=== PATIENT | female | born 1940 | race Caucasian/White ===

== ENCOUNTER → 2017-10-18 10:36 | Outpatient (CLI) | payer MEDICARE, OTHER, SELFPAY ==
--- NOTE | 2017-10-18 10:42 | BI_ITS ---
MAMMOGRAPHY - BILATERAL SCREENING REASON FOR EXAM: Female, 77 years old. Routine annual screening examination. PERTINENT HISTORY: Non-contributory. TECHNIQUE: Digital bilateral breast vinny (3D mammographic acquisition) in the CC and MLO projections. 2-D mediolateral oblique (MLO) and craniocaudad (CC) views of both breasts were obtained. CAD: Full Field Digital Mammography with Computer Added Detection was performed. COMPARISON: Comparison is made with prior study dated October 10, 2016 and September 29, 2015. FINDINGS: Breast Composition: There are scattered areas of fibroglandular density. There are no dominant masses or suspicious calcifications. Stable 3.8 mm well-defined nodule in the upper axillary region of the right breast. Stable appearance of the vascular calcifications bilaterally. No other significant abnormalities are identified. There has been no significant change since the prior study. BI/SCREENING MAMM (CAD), BILAT IMPRESSION: Stable bilateral screening mammogram. Yearly follow-up mammogram recommended. (A) ASSESSMENT CATEGORY: BIRADS Category 2: Benign. A letter regarding these results will be sent to the patient by the facility within 30 days. Approximately 10% of breast cancers are not detected by mammography. A normal mammogram should not delay biopsy of a clinically suspicious abnormality. [id number] Electronically Signed: Marlon Marmolejo MD at 12:41 EDT Tel [phone], Service support ,
== END ==
PROVIDERS: Family Provider Family Medicine; PCP Family Medicine; Visit Provider Family Medicine
DX: Z12.31 Encounter for screening mammogram for malignant neoplasm of breast (principal)
CPT/HCPCS: 77063; 77067

== ENCOUNTER 2018-07-22 06:30 | Day surgery (SDC) | payer MEDICARE, OTHER, SELFPAY ==
[2018-07-10 09:33] VITALS: BMI 28.4
--- NOTE | 2018-07-21 | COLBX_PTH ---
PATIENT: CORINNE HANKS LOC: EN U#:[id number] AGE/SX: 78/F ROOM: RE07/22/[address]: Dr. Austin Segura MD : 1940 BED: DIS: 07/22/2018 SPEC #: [id number] RECD: 07/22/18 14:08 STATUS: VINOD VERÓNICA #: [id number] RAUL: 07/21/18 00:[address]: Austin Segura DEPT: SURGICAL PATHOLOGY RECD BY: Ralph Stevens ENTERED: 07/22/18 14:09 SP TYPE: COLON BX OTHR DR: Dr. Sudheer Segura III, MD Tissues: COLON BIOPSY Procedures: Trichrome (control) Special Stain Group II Surgery Specimen Level IV HEADER OPERATION: Colonoscopy (MOD) PRE-OP DIAGNOSIS: Screening TISSUE SUBMITTED: Random colon biopsies MICROSCOPIC DIAGNOSIS Colon, random biopsy: Fragments of colonic mucosa with changes consistent with lymphocytic (microscopic) colitis and focal changes suggestive of collagenous colitis. See comment. VANDA:steph 07/23/18 COMMENT Trichrome stain with matched control was used in the evaluation of the specimen and shows focal minimal thickening of subepithelial collagen band. MICROSCOPIC DESCRIPTION Slides are reviewed. GROSS DESCRIPTION Received in fixative is one container labeled with the patient's name and designated random colon biopsy. The specimen consists of multiple irregular fragments of light danielle soft tissue that in aggregate measure 1.5 x 1 x 0.1 cm. The specimen is totally submitted in one cassette. / VANDA:steph 07/22/18 TC:5 CPT: 54238, 31842
[2018-07-22] VITALS (7 sets, daily range): BP systolic 98–160; BP diastolic 57–84; PULSE 60–67; RESP 16–18; TEMP 36.3–36.6; O2SAT 93–100; BMI 27.7
--- NOTE | 2018-07-22 08:01 | OP.ENDO_ITS ---
07/22/2018 Sudheer Segura [address] [place] [address] Re : Colonoscopy procedure for Cecelia Jofrancisco javier Dear Dr. Segura This procedure was performed on Sunday, July 22, 2018. My impressions and recommendations are as follows: Impressions : - Non-thrombosed external hemorrhoids, non-thrombosed internal hemorrhoids and internal hemorrhoids that prolapse with straining, but spontaneously regress to the resting position (Grade II) found on digital rectal exam. - Tortuous colon. - Increased mucosa vascular pattern in the ascending colon and in the cecum. Biopsied. - The examination was otherwise normal. Recommendations : - Discharge patient to home. - Resume previous diet. - Continue present medications. - Telephone my office for pathology results in 1 week. - Repeat colonoscopy in 5 years for surveillance. My findings are described in the full procedure note, which is enclosed. If I can be of further assistance, please feel free to contact me at Doctor phone number(s): Work: . Sincerely, Austin Segura MD 07/22/2018 8:01:29 AM This report has been signed electronically.
== END 2018-07-22 09:23 | disposition home or self-care (01) ==
LOC: EN 06:30 → AC 06:31
PROVIDERS: Family Provider Family Medicine; PCP Family Medicine; Referring Provider Family Medicine; Visit Provider Surgery
PROC: 0DJD8ZZ Inspection of Lower Intestinal Tract, Via Natural or Artificial Opening Endoscopic (ICD-10-PCS; CPT 45378; principal; 2018-07-22 07:25)
DX: K64.4 Residual hemorrhoidal skin tags (principal); K64.1 Second degree hemorrhoids; Z80.0 Family history of malignant neoplasm of digestive organs; Q43.8 Other specified congenital malformations of intestine; K21.9 Gastro-esophageal reflux disease without esophagitis; Z79.899 Other long term (current) drug therapy; Z87.891 Personal history of nicotine dependence
CPT/HCPCS: 45380; 88305; 88313; 99152; 99153; J7120

== ENCOUNTER → 2018-10-22 14:34 | Outpatient (CLI) | payer MEDICARE, OTHER, SELFPAY ==
[2018-07-22 06:48] VITALS: BMI 27.7
--- NOTE | 2018-10-22 14:37 | BI_ITS ---
MAMMOGRAPHY - BILATERAL SCREENING REASON FOR EXAM: Female, 78 years old. Routine annual screening examination. PERTINENT HISTORY: Non-contributory. TECHNIQUE: Digital bilateral breast martin (3D mammographic acquisition) in the CC and MLO projections. 2-D mediolateral oblique (MLO) and craniocaudad (CC) views of both breasts were obtained. CAD: Full Field Digital Mammography with Computer Added Detection was performed. COMPARISON: Comparison is made with prior examination dated October 18, 2017 and October 10, 2016. FINDINGS: Breast Composition: There are scattered areas of fibroglandular density. There are no dominant masses or suspicious calcifications. Stable 3.8 mm well-defined nodule in the upper axillary region of the right breast. This most likely represents a small lymph node. Stable small benign-appearing bilateral axillary lymph nodes. No other significant abnormalities are identified. There has been no significant change since the prior study. BI/SCREEN MAMM (CAD) W/MARTIN BILAT IMPRESSION: Stable bilateral screening mammogram. Yearly follow-up mammogram recommended. (A) ASSESSMENT CATEGORY: BIRADS Category 2: Benign. A letter regarding these results will be sent to the patient by the facility within 30 days. Approximately 10% of breast cancers are not detected by mammography. A normal mammogram should not delay biopsy of a clinically suspicious abnormality. [id number] Electronically Signed: Marlon Marmolejo, at 15:44 EDT , Service support ,
== END ==
PROVIDERS: Family Provider Family Medicine; PCP Family Medicine; Referring Provider Family Medicine; Visit Provider Family Medicine
DX: Z12.31 Encounter for screening mammogram for malignant neoplasm of breast (principal)
CPT/HCPCS: 77063; 77067

== ENCOUNTER → 2019-06-02 15:57 | Outpatient (CLI) | payer MEDICARE, OTHER, SELFPAY ==
[2018-07-22 06:48] VITALS: BMI 27.7
== END ==
PROVIDERS: PCP Family Medicine; Referring Provider Urology; Visit Provider Urology
DX: R35.0 Frequency of micturition (principal)
CPT/HCPCS: 87086

== ENCOUNTER → 2019-11-10 08:17 | Outpatient (CLI) | payer MEDICARE, OTHER, SELFPAY ==
[2018-07-22 06:48] VITALS: BMI 27.7
--- NOTE | 2019-11-10 08:21 | BI_ITS ---
MAMMOGRAPHY - BILATERAL SCREENING REASON FOR EXAM: Female, 79 years old. Routine annual screening examination. PERTINENT HISTORY: Sister with breast cancer. TECHNIQUE: Digital bilateral breast martin (3D mammographic acquisition) in the CC and MLO projections. 2-D mediolateral oblique (MLO) and craniocaudad (CC) views of both breasts were obtained. CAD: Full Field Digital Mammography with Computer Added Detection was performed. COMPARISON: Comparison is made with prior examination dated 10/22/2018 and 10/18/2017. FINDINGS: Breast Composition: There are scattered areas of fibroglandular density. There are no dominant masses or suspicious calcifications. Stable benign-appearing bilateral axillary lymph nodes. No other significant abnormalities are identified. There has been no significant change since the prior study. BI/SCREEN MAMM (CAD) W/MARTIN BILAT IMPRESSION: Stable bilateral screening mammogram. Yearly follow-up mammogram recommended. (A) ASSESSMENT CATEGORY: BIRADS Category 2: Benign. A letter regarding these results will be sent to the patient by the facility within 30 days. Approximately 10% of breast cancers are not detected by mammography. A normal mammogram should not delay biopsy of a clinically suspicious abnormality. [id number] Electronically Signed: Marlon Marmolejo, at 10:18 EDT , Service support ,
== END ==
PROVIDERS: PCP Family Medicine; Referring Provider Family Medicine; Visit Provider Family Medicine
DX: Z12.31 Encounter for screening mammogram for malignant neoplasm of breast (principal)
CPT/HCPCS: 77063; 77067

== ENCOUNTER 2020-05-05 10:42 | Outpatient (RCR) | payer MEDICARE, OTHER, SELFPAY ==
[2018-07-22 06:48] VITALS: BMI 27.7
== END 2020-05-05 23:59 ==
LOC: IMMUN 10:42
PROVIDERS: PCP Family Medicine; Visit Provider Family Medicine
DX: Z23 Encounter for immunization (principal)
CPT/HCPCS: 0011A; 0012A; 91301

== ENCOUNTER → 2020-10-31 09:29 | Outpatient (CLI) | payer MEDICARE, OTHER, SELFPAY ==
[2018-07-22 06:48] VITALS: BMI 27.7
--- NOTE | 2020-10-31 09:32 | RAD_ITS ---
PROCEDURE: Fluoroscopic guided shoulder Injection DATE: 10/31/2020. INDICATION: Female, 80 years old. Chronic left shoulder pain. PHYSICIAN: Marlon Marmolejo M.D. MEDICATIONS: 12 mg of BETAMETHASONE and 4 cc of 1% LIDOCAINE. 2% lidocaine administered subcutaneously for local anesthesia. ACCESS SITE: Left shoulder. NEEDLE: 22-gauge spinal needle. FLUOROSCOPY TIME (if supplied): (0:54) minutes/seconds. One image was obtained. FINDINGS: The risks, benefits, and alternatives to the procedure were explained to the patient. The specific risks of bleeding, infection, and neurovascular injury were detailed and accepted. Witnessed informed consent was obtained. A 22-gauge spinal needle was positioned under radiographic fluoroscopic localization. Approximately 2 cc of ISOVUE-300 instilled for localization purposes. Medication was then injected. The patient tolerated the procedure well without any immediate complications. RAD/Inj/Asp Kirt Jt Should/Hip/Knee IMPRESSION: 1. Successful fluoroscopic guided left shoulder injection. Electronically Signed: Marlon Marmolejo MD at 11:29 EDT , Service support ,
[2020-10-31] MEDS: Lidocaine 2% (5ml sdv) 5 ML VIAL.MPF INFILT (10:00)
== END ==
PROVIDERS: PCP Family Medicine; Referring Provider Specialist; Visit Provider Specialist
DX: M19.012 Primary osteoarthritis, left shoulder (principal)
CPT/HCPCS: 20610; 77002; Q9967; J0702

== ENCOUNTER → 2020-12-02 11:21 | Outpatient (CLI) | payer MEDICARE, OTHER, SELFPAY ==
[2020-12-02 12:31] LABS: Absolute Lymphocyte Count 15.69 X10^3/uL (0.83-4.51); Basophil# 0.05 X10^3/uL; Basophil% 0.2 % (0-1); Eosinophil# 0.23 X10^3/uL; Eosinophils% 1.1 % (0-5); Hematocrit 43.6 % (37-47); Hemoglobin 13.9 g/dL (12.0-15.0); Lymphocyte # 15.69 X10^3/ul (0.83-4.51); Lymphocyte % 72.8 % (19-41); Mean Corp Hgb Conc 31.9 g/dL (32-36); Mean Corpuscular Hgb 30.6 pg (27.0-32.0); Mean Platelet Vol. 11.3 fl (6.2-12.0); Monocyte# 0.56 X10^3/uL; Monocyte% 2.6 % (0-10); NRBC Flagged by Analyzer 0.1 % (0-5); Neutrophil # 4.96 X10^3/uL (2.7-7.7); Neutrophil % 23.1 % (47-70); POSITIVE DIFFERENTIAL YES; POSITIVE MORPHOLOGY YES; Platelet Count 280 K/mm3 (150-450); RBC Distribution Width CV 13.7 % (11.6-14.6); RBC Distribution Width SD 48.8 fl (35.1-43.9); Red Blood Count 4.54 M/mm3 (4.2-5.4); White Blood Count 21.5 K/mm3 (4.4-11.0)
[2020-12-02 12:33] LABS: Differential Indicated SCAN CRITERIA MET
[2020-12-02 12:45] LABS: ALB/GLOB Ratio 1.1 RATIO (0.9-2.4); AST(SGOT) 25 U/L (15-37); Alanine Aminotransfer ALT/SGPT 22 U/L (13-56); Albumin, Serum 3.8 g/dL (3.2-5.0); Alkaline Phosphatase 69 U/L (45-117); Anion Gap 5 (5-15); BUN 19 mg/dL (7-18); BUN/Creat Ratio 24.5 RATIO (10-20); Calcium,Total 9.3 mg/dL (8.5-10.1); Chloride 106 mmol/L (98-107); Cholesterol 206 mg/dL (200); Creatinine, Serum 0.78 mg/dL (0.55-1.02); EST Glomerular Filtration Rate 76 mL/min (>60); Est Glom Filt Rate - Afr Amer 92 mL/min (>60); Globulin 3.4 g/dL (2.2-4.2); Glucose 82 mg/dL (74-106); High Density Lipoprotein 88 mg/dL; Potassium 4.5 mmol/L (3.5-5.1); Protein, Total 7.2 g/dL (6.4-8.2); Sodium Level 141 mmol/L (136-145); Triglycerides 101 mg/dL; Very Low Density Lipoprotein 20 mg/dL (5-40)
[2020-12-02 13:21] LABS: Smudge Cells 1+
[2020-12-05 13:55] LABS: Pathologist Review Reviewed
== END ==
PROVIDERS: PCP Family Medicine; Referring Provider Family Medicine; Visit Provider Family Medicine
DX: E78.5 Hyperlipidemia, unspecified (principal); C91.10 Chronic lymphocytic leukemia of B-cell type not having achieved remission; K58.0 Irritable bowel syndrome with diarrhea; N32.81 Overactive bladder
CPT/HCPCS: 36415; 80053; 80061; 85025

== ENCOUNTER → 2020-12-16 13:18 | Outpatient (CLI) | payer MEDICARE, OTHER, SELFPAY ==
--- NOTE | 2020-12-16 13:42 | BI_ITS ---
MAMMOGRAPHY - BILATERAL SCREENING REASON FOR EXAM: Female, 80 years old. Routine annual screening examination. PERTINENT HISTORY: Sister with breast cancer. TECHNIQUE: Digital bilateral breast martin (3D mammographic acquisition) in the CC and MLO projections. 2-D mediolateral oblique (MLO) and craniocaudad (CC) views of both breasts were obtained. CAD: Full Field Digital Mammography with Computer Added Detection was performed. COMPARISON: Comparison is made with prior study 11/10/2019 and 10/22/2018. FINDINGS: Breast Composition: There are scattered areas of fibroglandular density. There are no dominant masses or suspicious calcifications. Stable small benign appearing bilateral axillary lymph nodes. No other significant abnormalities are identified. There has been no significant change since the prior study. BI/SCRN MAMM (CAD)W/MARTIN BILAT IMPRESSION: Stable bilateral screening mammogram. Yearly follow-up mammogram recommended. (A) ASSESSMENT CATEGORY: BIRADS Category 2: Benign. A letter regarding these results will be sent to the patient by the facility within 30 days. Approximately 10% of breast cancers are not detected by mammography. A normal mammogram should not delay biopsy of a clinically suspicious abnormality. [id number] Electronically Signed: Marlon Marmolejo MD at 14:33 EDT , Service support ,
== END ==
PROVIDERS: PCP Family Medicine; Visit Provider Family Medicine
DX: Z12.31 Encounter for screening mammogram for malignant neoplasm of breast (principal)
CPT/HCPCS: 77063; 77067

== ENCOUNTER → 2020-12-28 10:37 | Outpatient (CLI) | payer MEDICARE, OTHER, SELFPAY ==
--- NOTE | 2020-12-28 10:54 | BD_ITS ---
STUDY: DUAL ENERGY X-RAY ABSORPTIOMETRY / DXA REASON FOR EXAM: Female, 80 years old. M85.89. The patient is postmenopausal. TECHNIQUE: Bone Mineral Density (BMD) measurements of lumbar spine and bilateral hips were obtained. COMPARISON: None. FINDINGS: Lumbar Spine (L1-L4): g/cm2 (0.885) / T-score (-1.5) / Z-score (1.2) Findings are suggestive of osteopenia with a low fracture risk. Left Femur Total: g/cm2 (0.964) / T-score (0.2) / Z-score (2.3) Left Femoral Neck: g/cm2 (0.753) / T-score (-0.9) / Z-score (1.5) Right Femur Total: g/cm2 (0.914) / T-score (-0.2) / Z-score (1.9) Right Femoral Neck: g/cm2 (0.737) / T-score (-1.0) / Z-score (1.3) BD/Dexa Bone Density Study IMPRESSION: The patient is considered osteopenic as outlined below according to World Sreedhar Organization (WHO) criteria with a low fracture risk. Reference Information: The T-score is the number of standard deviations above or below the standard which is normal for young adults at their peak bone mineral density. The World Health Organization (WHO) interprets the T-scores as follows: Above -1 Normal bone density Between -1 and -2.5 Osteopenia Equal to / or below -2.5 Osteoporosis As a practical clinical guideline, osteopenia may be graded as follows: Mild -1 through -1.5 Moderate -1.6 through -2.0 Severe -2.1 through -2.4 The Z-score is the number of standard deviations above or below age-matched controls. A Z-score of less than -1.5 would be considered abnormal. References: 1. NIH Osteoporosis and Related Bone Diseases www osteo.org 2. International Society for Clinical Densitometry www iscd.org 3. National Osteoporosis Foundation www nof.org Electronically Signed: Marlon Marmolejo MD at 15:32 EDT , Service support ,
== END ==
PROVIDERS: PCP Family Medicine; Referring Provider Family Medicine; Visit Provider Family Medicine
DX: M85.89 Other specified disorders of bone density and structure, multiple sites (principal)
CPT/HCPCS: 77080

== ENCOUNTER → 2021-01-09 14:46 | Outpatient (CLI) | payer MEDICARE, OTHER, SELFPAY ==
--- NOTE | 2021-01-09 14:49 | CT_ITS ---
STUDY: CT LEFT SHOULDER REASON FOR EXAM: Female, 80 years old. PRIMARY OSTEOARTHRITIS RADIATION DOSAGE (If Supplied By Facility): CTDIvol = ( 26.22 ) mGy, DLP = ( 530.78 ) mGycm TECHNIQUE: The patient was scanned in a multi detector CT scanner. High resolution transaxial imaging was performed without the administration of intravenous contrast material. Sagittal and coronal images were reconstructed. Individualized dose optimization techniques were used for this CT. COMPARISON: None. FINDINGS: Unremarkable glenohumeral articulation with no evidence of dislocation. Osteophytosis visualized in the glenoid bone most prominent in the anterior and inferior borders Osteophytosis visualized within the humeral head most prominent along the anterior and inferior articular margins. Degenerative changes and suggestion of subtle enthesopathy in the bicipital groove. Severe narrowing of the acromioclavicular joint with subtle subchondral lucencies consistent with subchondral cystic changes, air visualized within the joint space and mild overlying soft tissue prominence seen superiorly. 0.5 cm calcification suggestive of a loose body visualized within the subcoracoid space. Multiple subtle scattered popcorn calcifications visualized within the posterior inferior aspect of the shoulder joint is visualized on coronal CT is series 601 image 56 and axial series 3 image 33 with surrounding soft tissue prominence, findings could represent synovial chondromatosis. No evidence of cortical irregularities or lucencies to suggest fractures, no evidence of lytic or sclerotic bone lesions is seen. CT/Extremity Upper without Contra IMPRESSION: Extensive degenerative changes, no acute osseous abnormality is seen. Electronically Signed: Tyler Collazo MD at 11:27 EDT Tel , Service support ,
== END ==
PROVIDERS: PCP Family Medicine; Referring Provider Specialist; Visit Provider Specialist
DX: M19.012 Primary osteoarthritis, left shoulder (principal)
CPT/HCPCS: 73200

== ENCOUNTER 2021-03-15 06:13 | Day surgery (SDC) | payer MEDICARE, OTHER, SELFPAY ==
--- NOTE | 2021-02-21 17:17 | PCM.HP.BLA ---
History and Physical History and Physical [facility] Patient Name: Cecelia Knight : 1940 From: DB PALMER PA-C DATE OF SURGERY: 03/15/2021 SCHEDULED PROCEDURE: left reverse total shoulder arthroplasty HISTORY OF PRESENT ILLNESS: Preoperative history and physical exam was performed on February 20, 2021. This is an 81-year-old female who is been having ongoing left shoulder pain for several months. Patient is right-hand dominant. Patient's pain has been sharp, shooting pain. Her pain with activities can reach as high as a 10/10. She has had difficulties with activities of daily living including getting dressed. She has had previous intra-articular injection which was helpful temporarily but the pain returned. She has tried previous physical therapy with minimal improvement. She does feel her left shoulder has decreased motion when compared to the right shoulder. Patient has been using [id number] extra strength Tylenol. Patient states she has medical history pertinent for chronic diarrhea, irritable bowel syndrome, overactive bladder, hypercholesterolemia, and previous history of chronic lymphocytic leukemia. Patient currently denies any chest pain, shortness of breath, fevers chills or recent infections. She states she has seen a kettle firer in the past in 2010 for what she describes as irregular heartbeat. She was never followed after the one cardiology appointment. She does see Dr. Jara for the chronic lymphocytic leukemia. She is currently not requiring any treatments. They're following that with lab work. She does see a urologist for her overactive bladder. She denies previous blood clots in the past. After failing conservative measures and discussing treatment options with Dr. Bryan Castle, the patient does wish to proceed with a left reverse total shoulder arthroplasty. We are obtaining surgical clearance from the primary care physician Dr. Sharif. REVIEW OF SYSTEMS: ROS: Const: Denies anorexia, anxiety, change in appetite, fever and weight change,hard of hearing, and vision problems. ENMT: Reports hearing loss. Reports 25% loss in each ear. CV: Reports irregular heartbeat, but denies chest pain, heart murmur and peripheral vascular disease. Resp: Reports pneumonia, but denies asthma, cough, sleep apnea, shortness of breath, tuberculosis and wheezing. GI: Reports diarrhea Denies constipation, heartburn, nausea, bloody stools and vomiting, and difficulty swallowing. : Denies incontinence. Musculo: Reports trouble walking and weakness of the legs, but denies leg swelling, limp. Skin: Denies Raynaud's, history of shingles and tattoo. Neuro: Denies ambulatory dysfunction, dizziness, numbness/tingling and tremor. Psych: Reports insomnia, but denies anxiety, depression, mental illness and stress. Tarik/Lymph: Denies anemia, bleeding/bruising tendency and past transfusion. Reviewed, no changes. PAST MEDICAL HISTORY: Advance Care Plan: No Advance Directives Effective Date: 04/29/2015 PMH: Medical Problems: Arthritis Cancer - Chronic Lympkocytic Leukemia Hypercholesterolemia, IBS, Chronic Diarrhea, Overactive Bladder Accidents: Fracture - 1965 Pelvis Surgical Hx: Appendectomy - 1974 [facility] Gallbladder - 2002 [place] Hysterectomy - 1995 with Bladder Suspension [place] Tonsillectomy - 1944 [place] Tubal Ligation - 1974 [facility] Section - 1974 [facility] Vein Stripping - 1996 [place] Carpal Tunnel - 1996 [place] [place] Small bowel obstruction - (2009) Lysis of adhesions [facility] Dr Saida Segura LT Knee Uni - (05/31/2015) ALENA @ [facility] Anesthesia Complications: None Assistive Devices: Glasses, Hearing Aid Reviewed and updated. SOCIAL HISTORY: SH: Marital: .Occupation: Retired.Work Status: Retired.Hand Dominance: Right-handed. Personal Habits: Cigarette Use: Former.Smokeless Tobacco: Never Used Smokeless Tobacco.E-Cigarette Use: Never used.Alcohol: Occasionally.Drug Use: Denies Use.Enjoy Exercising: Exercises 1-3 X/Week. Reviewed, no changes. VITALS: Ht: 57 Wt: 129lb Wt k.514 BMI: 27.9 BP: 136/70 Pulse: 61 Resp: 16 T: 97.8 T: 36.6C Pain Level: 3 ALLERGIES: Codeine - Nausea And Vomiting MEDICATIONS: Zofran 4 mg 1-2 by mouth every 8 as needed nausea, Ultram 50 mg 1-2 by mouth q6 hour as needed pain, Vitamin D3 1000 Unit 1 tab PO daily, Simvastatin 40 mg 1 by mouth every day, Vitamin B12 1000 mcg 1 by mouth every day, [place] 3 Krill Oil 1po qday, Vision Multi 50+ 1po qday, Aspir-81 81 mg 1 by mouth every day, Biotin 05742 mcg 1po qday, Prevagen Extra Strength 20 mg 1po bid, Oxybutynin Chloride ER 10 mg 1 by mouth every day, Ubiquinol 100 mg 1po daily, Doxylamine Succinate 1po prn, Loperamide HCL 2 mg 1-2po prn, Omeprazole 20 mg 1 by mouth every day PRE-OP EXAM: General appearance:NORMAL Other: Eyes: Conjunctivae and lids: NORMAL Pupils: ERR Ears, Nose, Mouth, and Throat: NORMAL Other: Inspection of lips, teeth and gums: NORMAL Other: Neck: Examination of neck: no masses noted. Respiratory: Assessment of respiratory effort: NORMAL Other: Auscultation of lungs: clear to auscultation no wheezes, rhonchi or rales. Cardiovascular: Auscultation of heart: regular rate and rhythm, no murmurs, gallops or rubs. PHYSICAL EXAMINATION: Left shoulder is cool to touch without erythema or signs of infection. She has tenderness to palpation of the left lateral shoulder and anterior shoulder. Range of motion: Forward elevation 160 on the right and 150 on the left, external rotation 35 on the right and 15 on the left, internal rotation T9 bilaterally. She does have some mild scapular dyskinesia. 4/5 supraspinatus strength on the left and 5/5 on the right. 5/5 internal and external rotation bilaterally. Sensation intact to light touch to axillary, radial, median, ulnar nerve distribution. IMAGING STUDIES: Previous x-rays of left shoulder reveal osseous loose body in the axillary pouch. There is significant osteophytic formation around the humeral head at the margins of the articular surface. There is complete loss of joint space in the glenohumeral joint with posterior wear on the axillary view consistent with primary glenohumeral osteoarthritis. IMPRESSION: 1. Severe left shoulder glenohumeral osteoarthritis 2. Chronic lymphocytic leukemia 3. Hypercholesterolemia 4. Irritable bowel syndrome 5. Chronic diarrhea 6. Overactive bladder PLAN: Dr. Bryan Castle did discuss and review with the patient all treatment options including surgical versus nonsurgical options. Patient does wish to proceed with the above-stated procedure. Potential risks, benefits, and complications of the procedure were discussed in detail including but not limited to , infection, nerve and blood vessel damage, persistent pain, numbness, tingling, paresthesias, blood clot, pulmonary embolism, and requirement for possible further surgery. The patient expressed full understanding and has no further questions for the doctor. Patient does agree to proceed with the above-stated procedure and has signed the surgery consent form. We discussed the current risks associated with COVID 19. This does include the risk of exposure while in the hospital. Patient was reassured local hospitals have low infection rates and are taking all necessary precautions to avoid exposure to patients. In addition, we discussed strategies that can be used to help limit exposure including those that limit the patient's time in the hospital. Also using strategies to limit the patient's need for continued inpatient services after being discharged from the hospital. Patient was notified that we will need to comply with any screening or testing the hospital wishes to perform or that surgery may be delayed for any positive results. This dictation was created using voice recognition software. Phonetic and/or grammatical errors may exist. ___ I have re-examined the patient. There are no clinical changes since date of exam. ___ See progress notes for changes. ___ Dictated on admission Date: Time: Signature:
--- NOTE | 2021-03-08 09:46 | EKG12_ITS ---
Test Reason : PRE-OP Blood Pressure : / mmHG Vent. Rate : 060 BPM Atrial Rate : 060 BPM P-R Int : 154 ms QRS Dur : 078 ms QT Int : 420 ms P-R-T Axes : 041 033 033 degrees QTc Int : 420 ms Normal sinus rhythm Normal ECG Confirmed by TAMARA NORTON, LEN ([id number]), story editor MAYKEL ALMENDAREZ ([id number]) on 03/09/2021 8:27:08 AM Referred By: Bryan Castle Confirmed By:LEN MCDONALD MD
[2021-03-08 10:26] LABS: Absolute Lymphocyte Count 14.58 X10^3/uL (0.83-4.51); Absolute Neutrophil Count 3.9 X10^3/uL (2.0-7.7); Basophil# 0.05 X10^3/uL; Basophil% 0.3 % (0-1); Eosinophil# 0.26 X10^3/uL; Eosinophils% 1.3 % (0-5); Hemoglobin 13.7 g/dL (12.0-15.0); Lymphocyte # 14.58 X10^3/ul (0.83-4.51); Lymphocyte % 75.3 % (19-41); Mean Corp Hgb Conc 31.9 g/dL (32-36); Mean Corpuscular Hgb 30.2 pg (27.0-32.0); Mean Corpuscular Volume 94.9 fL (81-99); Mean Platelet Vol. 11.1 fl (6.2-12.0); Monocyte# 0.55 X10^3/uL; Monocyte% 2.8 % (0-10); NRBC Flagged by Analyzer 0 % (0-5); Neutrophil # 3.89 X10^3/uL (2.7-7.7); Neutrophil % 20.1 % (47-70); POSITIVE DIFFERENTIAL YES; POSITIVE MORPHOLOGY YES; Platelet Count 267 K/mm3 (150-450); RBC Distribution Width CV 13.8 % (11.6-14.6); RBC Distribution Width SD 48.6 fl (35.1-43.9); Red Blood Count 4.53 M/mm3 (4.2-5.4); White Blood Count 19.4 K/mm3 (4.4-11.0)
[2021-03-08 10:28] LABS: Differential Indicated SCAN CRITERIA MET
[2021-03-08 10:58] LABS: Magnesium 2.1 mg/dL (1.6-2.6)
[2021-03-08 11:09] LABS: Albumin, Serum 3.7 g/dL (3.2-5.0); Anion Gap 9 (5-15); BUN 22 mg/dL (7-18); BUN/Creat Ratio 26.9 RATIO (10-20); Calcium,Total 9.6 mg/dL (8.5-10.1); Chloride 103 mmol/L (98-107); Creatinine, Serum 0.82 mg/dL (0.55-1.02); EST Glomerular Filtration Rate 71 mL/min (>60); Est Glom Filt Rate - Afr Amer 86 mL/min (>60); Glucose 87 mg/dL (74-106); Potassium 4.5 mmol/L (3.5-5.1); Sodium Level 139 mmol/L (136-145)
[2021-03-15] VITALS (11 sets, daily range): BP systolic 137–174; BP diastolic 74–94; PULSE 60–82; RESP 12–18; TEMP 35.8–36.4; O2SAT 96–100; BMI 28.6
[2021-03-15] MEDS: Acetaminophen 500 MG Tablet 1000 MG PO (07:08)
[2021-03-15] MEDS: Gabapentin 600 MG Tablet PO (07:08)
[2021-03-15] MEDS: Celecoxib 200 MG Capsule 400 MG PO (07:10)
[2021-03-15] MEDS: Vancomycin IV 1,000 MG/200 ML BAG 200 MG IV (09:05)
[2021-03-15] MEDS: dexAMETHasone 10 MG/ML Vial IV (09:20)
--- NOTE | 2021-03-15 10:21 | OP.PCM_ITS ---
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 [place] reunion glenoid baseplate 2. [place] reunion 36 mm, 2mm eccentric glenosphere 3. Anupam reunion 36mm, 4mm humeral liner 4. [place] reunion reverse TSA humeral adapter tray 2mm 5. Anupam reunion humeral stem primary press-fit 9mm size Brief history/Operative indications: 81 yo F with history of left shoulder pain and cuff tear arthropathy. Patient failed conservative measures as mentioned in the H&P. After discussion of risk and benefits of reverse total shoulder replacement including but not limited to blood loss, DVTs, PEs, nerve vessel damage, infection, general risk of anesthesia including loss of life, instability and stiffness patient demonstrating understanding wish to proceed was able to sign informed consent. Medical clearance was obtained. Procedure: On the date of the procedure, patient's left upper extremity was marked in the preoperative area. Patient was taken back to the operating room where they were placed on the table in the supine position. Anesthesia assumed control of the C-spine and airway, then administered anesthetic. All bony prominences were identified well-padded, the head was secured and the patient was placed in the beachchair position at about 35? inclination. Anesthesia remained in control of the C-spine airway throughout the remainder of the procedure. Patient was then appropriately fastened to the table and the left upper extremity was prepped in a sterile fashion. The surgeons then scrubbed. Upon reentering the room, the left upper extremity was draped in a sterile fashion and the incision was marked out. Timeout was called, everyone agreed upon the side, the site, the procedure to be performed, patient identity and antibiotics given. Incision was taken down through skin and subcutaneous tissue, fat down to fascia. The stripe of the deltopectoral interval and cephalic vein were identified and blunt dissection was used to retract the deltoid. The cephalic vein was retracted laterally. Clavipectoral fascia was then incised and a cobra retractor was placed in the wound. The proximal one third of the pectoralis major insertion was released. Pectoralis tendon insertion was used to tenodesed the biceps tendon which was identified in the bicipital groove. Tenodesis was done with #1 Vicryl. Proximally we followed the biceps tendon after transecting it into the rotator interval. The rotator interval was split and the arm was externally rotated. The split was 1 cm medial to the bicipital groove. Subscapularis tendon was released. We released down the anterior portion of the humeral head and a pritchard elevator was used to release the inferior portion of the humeral head. The arm was externally rotated and the shoulder was dislocated. The humeral head was then cut at its natural retroversion. Once his humeral head cut was made humerus was retracted out of the way and the glenoid was exposed. After exposing the glenoid, the labrum and the remaining proximal biceps were debrided. At this time we are able to view the entire outer edge of the glenoid. A central pin was placed we sequentially reamed over this central pin to 36mm. Once this was completed the central screw was measured and found to be. The glenoid baseplate was screwed into place. Wound was closely irrigated out with normal saline we then drilled sequentially for 2 screws. Screws were placed superiorly and inferiorly and tightened down the screws. Once the screws were appropriately tightened into place the glenoid baseplate was compressed against the exposed subchondral bone. A 36mm glenosphere was impacted into place engaging the Guzman taper. Attention was then turned towards the humerus. The humerus was again externally rotated exposing the proximal portion of the humerus. Central canal finder was then used to open up the canal. We reamed to a 9mm reamer. We then broached to a 9mm stem. We trialed the 4mm liner, with the 2mm humeral baseplate. We obtained an adequate reduction at this time with a nice stable shoulder. Good internal rotation to the gluteus, forward elevation to 140?, external rotation to 20?. Final components were then assembled on the back table, trials were removed and the wound was copiously irrigated with normal saline after dislocating the shoulder. Once the final components were assembled they were impacted into place. Shoulder was then reduced and found to be stable with good range of motion. Subscapularis tendon was repaired using #2 FiberWire. The wound was with chlorhexidine solution then copiously irrigated out with a 1 L normal saline lavage. The deltopectoral fascia was then closed using #1 Vicryl skin was closed using 2-0 Vicryl interrupted sutures and final skin closure was done with 3-0 Monocryl. Steri-Strips are placed for final skin closure. Sterile dressing was placed patient was then placed in a sling and awakened by anesthesia. Patient was then transferred to the PACU for recovery. Postoperative plan: Patient will be admitted to the hospital overnight. They will get physical therapy starting in 2 weeks with normal postoperative regimen. Patient will be placed on aspirin 81 mg daily for DVT prophylaxis. The first postoperative appointment will be in 2 weeks for wound check and initiation of phase 1 physical therapy. During the course of the procedure the physician title i assistant played a vital role. His intimate knowledge of my steps in the procedure aided in safe and expedient completion of the procedure. The PA played a vital rolls in positioning particularly in obtaining the appropriate beach chair position and securing the patient's body and head to the table. The PA was also vital in the retraction of soft tissues during the exposure and especially the glenoid work as this is a vital part of the procedure to prevent neurovascular damage. the PA was also vital and protecting soft tissues during times of bony cuts and reaming. He also played a vital role in closure with my direct supervision. The PA was also important during reduction and dislocation of the joint and trials intraoperatively. Complications No intraoperative complications Admit VTE Documentation VTE Present on Admission: No VTE Mechan Device Prophylaxis: SCD's VTE Pharm Prophylaxis ordered?: Yes
[2021-03-15] MEDS: Lactated Ringers 1,000 ML 999 ML IV (11:00)
--- NOTE | 2021-03-15 11:15 | RAD_ITS ---
STUDY: X-RAY - LEFT SHOULDER REASON FOR EXAM: Postoperative evaluation of left shoulder arthroplasty. TECHNIQUE: 2 view(s) of the shoulder. COMPARISON: CT shoulder report 01/09/2021. FINDINGS: There is a reverse left shoulder arthroplasty without evidence of complication. There is postoperative gas in the soft tissues. There is atelectasis at the left lung base. RAD/Shoulder min 2 Views IMPRESSION: Uncomplicated reverse left shoulder arthroplasty. Electronically Signed: Richie Mandel MD at 13:09 EST Tel , Service support ,
[2021-03-15] MEDS: Cefazolin 1 GM/50 ML BAG IV (13:12)
== END 2021-03-15 14:52 | disposition home or self-care (01) ==
LOC: SDC 06:15 → AC 06:16
PROVIDERS: Anesthesiology; PCP Family Medicine; Referring Provider Specialist; Visit Provider Specialist
PROC: (CPT 23472; principal; 2021-03-15 08:15)
DX: M19.012 Primary osteoarthritis, left shoulder (principal); M75.102 Unspecified rotator cuff tear or rupture of left shoulder, not specified as traumatic; E78.00 Pure hypercholesterolemia, unspecified; N32.81 Overactive bladder; K21.9 Gastro-esophageal reflux disease without esophagitis; C91.10 Chronic lymphocytic leukemia of B-cell type not having achieved remission; Z79.899 Other long term (current) drug therapy; Z87.891 Personal history of nicotine dependence; K58.0 Irritable bowel syndrome with diarrhea
CPT/HCPCS: 01638; 23472; 64415; 36415; 73030; 80048; 82040; 83735; 85025; 87081; 93005; 97166; C1776; J7120; J2405; J3475

== ENCOUNTER 2021-06-26 08:13 | Outpatient (CLI) | payer MEDICARE, OTHER, SELFPAY ==
--- NOTE | 2021-06-26 08:16 | RAD_ITS ---
STUDY: AIR CONTRAST UPPER GI SERIES and esophagram. REASON FOR EXAM: Female, 81 years old. EPIGASTRIC PAIN FLUOROSCOPY TIME (if supplied): (49 seconds) minutes/seconds. 11 images were obtained. TECHNIQUE: SINGLE CONTRAST AND AIR CONTRAST FLUOROSCOPIC IMAGES. COMPARISON: None. FINDINGS: The cervical esophagus demonstrates normal motility without aspiration. There is no stricture or extrinsic mass effect. No intraluminal polypoid mass is identified. The thoracic esophagus distends well without stricture or mucosal fold thickening. No mucosal ulcerations are identified. There is no extrinsic mass effect. There are no diverticula. There is a small hiatal hernia with gastroesophageal reflux. The patient ingested a 12 mm tablet of barium without any difficulty. The stomach distends well without mucosal fold thickening or mucosal ulceration. There is no intraluminal mass. The duodenal bulb is freely distensible without deformity or ulceration. The duodenal sweep is normal in position and caliber. RAD/Upper GI w/BA Swallow IMPRESSION: Small sliding hilum hernia with gastroesophageal reflux. Electronically Signed: Marlon Marmolejo MD at 14:19 EDT ,
== END 2021-06-26 23:59 | disposition home or self-care (01) ==
LOC: RAD 08:15
PROVIDERS: PCP Family Medicine; Referring Provider Family Medicine; Visit Provider Family Medicine
DX: R10.13 Epigastric pain (principal)
CPT/HCPCS: 74246

== ENCOUNTER 2021-09-05 12:27 | Day surgery (SDC) | payer MEDICARE, OTHER, SELFPAY ==
--- NOTE | 2021-09-05 | GASB_PTH ---
PATIENT: CORINNE HANKS LOC: EN U#:[id number] AGE/SX: 81/F ROOM: RE09/05/[address]: Dr. Dayton Herrera DO : 1940 BED: DIS: 09/05/2021 SPEC #: [id number] RECD: 09/05/21 14:59 STATUS: VINOD REBernardo #: [id number] RAUL: 09/05/21 00:[address]: Dayton Herrera DEPT: SURGICAL PATHOLOGY RECD BY: Ralph Stevens ENTERED: 09/06/21 10:21 SP TYPE: Gastric Bx OTHR DR: Dr. Charlotte Sharif MD Tissues: A - Gastric mucous membrane B - Esophageal mucous membrane Procedures: Special Stain Group II Surgery Specimen Level IV Alcian Blue/PAS (control) HEADER OPERATION: EGD ([facility] [place]) PRE-OP DIAGNOSIS: Epigastric pain, hiatal hernia, GERD, irritable bowel syndrome with diarrhea TISSUE SUBMITTED: A ? Gastric antrum biopsy, B ? Distal esophagus biopsy MICROSCOPIC DIAGNOSIS A. Gastric antrum, biopsy: Chronic gastritis. See comment. B. Distal esophagus, biopsy: Gastroesophageal junctional mucosa with mild chronic inflammation. No evidence of goblet cell metaplasia. See comment. AM:steph 09/07/2021 COMMENT A. The results of immunohistochemistry for Helicobacter pylori will be reported separately ([id number]). B. Alcian blue/PAS stain with matched control supports the above diagnosis. MICROSCOPIC DESCRIPTION Slides are reviewed. GROSS DESCRIPTION A - Received in fixative is one container labeled with the patient's name and designated gastric antrum biopsy. The specimen consists of two irregular fragments of light danielle soft tissue that in aggregate measure 0.7 x 0.5 x 0.1 cm. The specimen is totally submitted in one cassette. B - Received in fixative is one container labeled with the patient's name and designated distal esophagus. The specimen consists of multiple irregular fragments of light danielle soft tissue that in aggregate measure 1 x 0.3 x 0.1 cm. The specimen is totally submitted in one cassette. / AM:steph 09/06/2021 TC:3 CPT: 64060 x2, 38416
--- NOTE | 2021-09-05 12:56 | PCM.HP.BLA ---
History and Physical Date of Admission: 09/05/21 [facility] Medical History (Updated 07/26/21 @ 09:13 by Estelita Beltrán ASSOCIATE PROFESSOR OF ART HISTORY, ASSOCIATE PROFESSOR OF ART HISTORY-C) Acid reflux Alcohol use Arthritis Bladder disease Cancer Cardiology follow-up encounter Chronic lymphatic leukemia Diarrhea Family history of colon cancer in mother Former smoker Frequent headaches GERD (gastroesophageal reflux disease) GERD without esophagitis Hemorrhoids Hiatal hernia High cholesterol History of back problems History of edema History of irregular heartbeat History of pain when walking History of stress test IBS (irritable bowel syndrome) Injury of head and neck Irritable bowel syndrome with diarrhea Microscopic colitis Small bowel obstruction Wears glasses Wears hearing aid Surgical History (Reviewed 07/26/21 @ 08:32 by Estelita Beltrán ASSOCIATE PROFESSOR OF ART HISTORY, ASSOCIATE PROFESSOR OF ART HISTORY-C) history left vein stripping history leftpartial knee replacement History of bilateral carpal tunnel release History of History of esophagogastroduodenoscopy (EGD) History of laparoscopic cholecystectomy History of tonsillectomy and adenoidectomy History of total abdominal hysterectomy and bilateral salpingo-oophorectomy Hx of appendectomy Hx of colonoscopy Hx of hemorrhoidectomy Hx of resection of small bowel Family History Mother Arthritis Colon cancer Sister Breast cancer Social History (Reviewed 07/26/21 @ 08:32 by Estelita Beltrán ASSOCIATE PROFESSOR OF ART HISTORY, ASSOCIATE PROFESSOR OF ART HISTORY-C) Smoking Status: Former smoker alcohol intake: current substance use type: does not use HPI HPI Details: CECELIA HANKS, is an active 81 F who presents to the office today for epigastric pain that began about 6 wks ago, constant mild discomfort. Already on omeprazole 40 mg daily for GERD. Upper GI with barium swallow was done, it showed small hiatal hernia. Dr Petersen suggested smaller, more frequent meals--Cecelia reports that change has almost resolved the discomfort. She has taken omeprazole x yrs, no hx Blackman's. Quite a few years since her last EGD. No assoc symptoms. No nausea, vomiting, dysphagia. She reports a hx of IBS-diarrhea. Her last colonoscopy 3 yrs ago revealed microscopic colitis. Budesonide was too expensive. She was treated with a different med, says it helped but diarrhea returned when she stopped it. Never knows if she will have diarrhea, definitely worse with stress. Uses loperamide prn. Wears Depends so she doesn't have to worry about diarrhea. No melena or hematochezia. PMH includes arthritis, OAB, SBO. PSH includes appy, cholecystectomy, HANNAH. Her mother had colon cancer. 06/26/21 Upper GI w/BA Swallow IMPRESSION: Small sliding hilum hernia with gastroesophageal reflux. 07/22/18 Colonoscopy: Impressions : - Non-thrombosed external hemorrhoids, non-thrombosed internal hemorrhoids and internal hemorrhoids that prolapse with straining, but spontaneously regress to the resting position (Grade II) found on digital rectal exam. - Tortuous colon. - Increased mucosa vascular pattern in the ascending colon and in the cecum. Biopsied. - The examination was otherwise normal. MICROSCOPIC DIAGNOSIS Colon, random biopsy:Fragments of colonic mucosa with changes consistent with lymphocytic (microscopic) colitis and focal changes suggestive of collagenous colitis ROS Const Constitutional: No fatigue ENT ENT: No difficulty swallowing Gastro GI: Positive for bloating, constipation and excessive flatus; No abdominal pain, belching, change in bowel habits, change in stool character, coffee ground emesis, cramping, diarrhea, heartburn, difficulty swallowing, feeling full early, incontinent of stools, Vomiting blood/hematemesis, Blood in stool, loose stools, Black,tarry stools, nausea/dyspepsia, pain with swallowing, vomiting or other Musc Musculoskeletal: Positive for joint pain, back pain, stiffness, Arthritis and restless legs Skin Skin: No yellowing of the eye or itchy eyes Neuro Neurology: Positive for unsteady gait/balance and restless legs Psych Psychiatric: No anxiety and No depression Endo Endocrine: No fatigue Aller/Imm Allergy/Immunologic: No itchy eyes Tarik/Lymp Hematologic/Lymphatic: No easy bleeding or easy bruising Exam Const General: cooperative, healthy appearing, comfortable, well developed and well groomed Eyes Conjunctivae: conjunctivae normal Sclera: sclerae normal Resp Effort & Inspection: normal respiratory effort GI Inspection: normal to inspection Palpation: soft, no hepatosplenomegaly and nontender Quality Reporting Tobacco Screening ([facility]) Smoking Status: Former smoker Assessment and Plan Assessment and Plan (1) Epigastric pain: Status: Acute (2) Hiatal hernia: Status: Acute (3) GERD (gastroesophageal reflux disease): Status: Acute (4) Irritable bowel syndrome with diarrhea: Status: Acute (5) Microscopic colitis: Status: Acute Plan - Estelita Beltrán ASSOCIATE PROFESSOR OF ART HISTORY, ASSOCIATE PROFESSOR OF ART HISTORY-C: 81 yr old female with epigastric pain, hiatal hernia, GERD on PPI, chronic intermittent diarrhea due to IBS and microscopic colitis. She will continue PPI and will continue smaller, more frequent meals since that has mostly resolved the epigastric pain. We will schedule her for EGD to evaluate for esophagitis, Blackman's, gastritis, duodenitis, ulcer. For the diarrhea, rx colestipol, can start with 1 gram QD-BID. F/u 2 wks after EGD. Plan Details Other Medications: New: colestipol 1 g PO BID PRN 60 tabs 1RF diarrhea I have re-examined the patient. There are no clinical changes since date of exam.
[2021-09-05 13:00] VITALS: BP 111/63; BP 147/93; PULSE 60; RESP 16; TEMP 36.9; O2SAT 93
[2021-09-05 13:02] VITALS: BP 147/93; PULSE 75; RESP 16; TEMP 36.4; O2SAT 98; BMI 28.0
[2021-09-05] MEDS: Lactated Ringers 1,000 ML 15 ML IV (13:14)
--- NOTE | 2021-09-05 13:30 | IMM_PTH ---
PATIENT: CORINNE HANKS LOC: EN U#:[id number] AGE/SX: 81/F ROOM: RE09/05/[address]: Dr. Dayton Herrera DO : 1940 BED: DIS: 09/05/2021 SPEC #: [id number] RECD: 09/06/21 09:20 STATUS: VINOD REQ #: [id number] RAUL: 09/05/21 13:[address]: Dayton Herrera DEPT: IMMUNOHISTOCHEMISTRY RECD BY: Carolin Turner ENTERED: 09/06/21 09:20 SP TYPE: IMMUNO OTHR DR: Dr. Charlotte Sharif MD Tissues: A - Stomach, NOS Procedures: H Pylori (initial) PHYSICIAN & INSTITUTION [place] [id number] SPECIMEN INFORMATION: Tissue Source: A ? Gastric antrum biopsy Clinical Info: Epigastric pain, hiatal hernia, GERD, irritable bowel syndrome with diarrhea Specimen Number: [id number] CPT code: 83075 METHODOLOGY: Deparaffinized sections of prefer/formalin-fixed tissue or PAP/DQ stained slides are incubated with monoclonal/polyclonal antibodies/oligonucleotide probes. Localization is made via biotin free immunoperoxidase method. Appropriate controls are performed and reacted as expected. Results on target cell population are indicated in the following table: RESULTS: ANTIBODY / CLONE RESULT Block A H Pylori (polyclonal) negative These tests were developed and their performance characteristics determined by [facility]. They may not have been cleared or approved by the U.S. Food and Drug Administration. The FDA has determined that such clearance or approval is not necessary. The above immunohistochemical/dualISH markers are ordered and reviewed by the Pathologist. INTERPRETATION: A. Gastric antrum, biopsy: Negative for Helicobacter pylori organisms. AM:steph 09/07/2021
--- NOTE | 2021-09-05 13:52 | OP.EGD_ITS ---
Patient Name: Cecelia Knight Procedure Date: 09/05/2021 1:32 PM Date of : 1940 Age: 81 Procedure: Upper GI endoscopy Indications: Epigastric abdominal pain, Functional Dyspepsia, Failure to respond to medical treatment Providers: Dayton Herrera DO Medicines: Monitored Anesthesia Care Patient Profile: This is an 81 year old female. Refer to note in patient chart for documentation of history and physical. Patient has symptoms. Complications: No immediate complications. Procedure: Pre-Anesthesia Assessment: - Prior to the procedure, a History and Physical was performed, and patient medications and allergies were reviewed. The patient is competent. The risks and benefits of the procedure and the sedation options and risks were discussed with the patient. All questions were answered and informed consent was obtained. Patient identification and proposed procedure were verified by the physician in the pre-procedure area. Mental Status Examination: alert and oriented. Airway Examination: normal oropharyngeal airway and neck mobility. Respiratory Examination: clear to auscultation. CV Examination: normal. Prophylactic Antibiotics: The patient does not require prophylactic antibiotics. Prior Anticoagulants: The patient has taken no previous anticoagulant or antiplatelet agents. After reviewing the risks and benefits, the patient was deemed in satisfactory condition to undergo the procedure. The anesthesia plan was to use moderate sedation / analgesia (conscious sedation). Immediately prior to administration of medications, the patient was re-assessed for adequacy to receive sedatives. The heart rate, respiratory rate, oxygen saturations, blood pressure, adequacy of pulmonary ventilation, and response to care were monitored throughout the procedure. The physical status of the patient was re-assessed after the procedure. After obtaining informed consent, the endoscope was passed under direct vision. Throughout the procedure, the patient's blood pressure, pulse, and oxygen saturations were monitored continuously. The gastroscope was introduced through the mouth, and advanced to the second part of duodenum. The upper GI endoscopy was accomplished without difficulty. The patient tolerated the procedure well. Scope In: 1:39:25 PM Scope Out: 1:44:29 PM Total Procedure Duration Time 0 hours 5 minutes 4 seconds Findings: The Z-line was irregular and was found 37 cm from the incisors. Biopsies were taken with a cold forceps for histology. Diffuse moderate inflammation characterized by congestion (edema), erosions and erythema was found in the entire examined stomach. Biopsies were taken with a cold forceps for histology. Verification of patient identification for the specimen was done. Estimated blood loss was minimal. The second portion of the duodenum was normal except for small AVM that was seen in the duodenal bulb. Impression: - Z-line irregular, 37 cm from the incisors. Biopsied. - Gastritis. Biopsied. - Normal second portion of the duodenum. -Duodenal bulb AVM Recommendation: - Discharge patient to home. - Resume previous diet. - Continue present medications. - Await pathology results. Procedure Code(s): --- Professional --- 25688, Esophagogastroduodenoscopy, flexible, transoral; with biopsy, single or multiple CPT copyright 2017 [employer]. All rights reserved. The codes documented in this report are preliminary and upon otr owner operator truck driver review may be revised to meet current compliance requirements. Dayton Herrera DO 09/05/2021 1:51:56 PM This report has been signed electronically. Number of Addenda: 1 Note Initiated On: 09/05/2021 1:32 PM Addendum Number: 1 Addendum Date: 01/05/2022 6:07:37 AM MAC was used as sedation for this procedure. Dayton Herrera DO 01/05/2022 6:07:41 AM This report has been signed electronically.
--- NOTE | 2021-09-05 13:53 | OP.CCLET_ITS ---
01/05/2022 Charlotte Sharif [place] [id number] [facility] [address] [address] Re : Upper GI endoscopy procedure for Cecelia Jofrancisco javier Dear Dr. Sharif This procedure was performed on Sunday, September 05, 2021. My impressions and recommendations are as follows: Impressions : - Z-line irregular, 37 cm from the incisors. Biopsied. - Gastritis. Biopsied. - Normal second portion of the duodenum. -Duodenal bulb AVM Recommendations : - Discharge patient to home. - Resume previous diet. - Continue present medications. - Await pathology results. My findings are described in the full procedure note, which is enclosed. If I can be of further assistance, please feel free to contact me at . Sincerely, Dayton Friend, 09/05/2021 1:51:56 PM This report has been signed electronically.
[2021-09-05 13:55] VITALS: BP 106/70; BP 147/93; PULSE 60; RESP 16; O2SAT 94
[2021-09-05 14:00] VITALS: BP 119/73; BP 147/93; PULSE 63; RESP 16; O2SAT 94
[2021-09-05 14:05] VITALS: BP 140/80; BP 147/93; PULSE 60; RESP 16; TEMP 36.6; O2SAT 96
[2021-09-05 14:25] VITALS: BP 147/93
== END 2021-09-05 14:57 | disposition home or self-care (01) ==
LOC: EN 12:28 → AC 12:29
PROVIDERS: PCP Family Medicine; Referring Provider Family Medicine; Visit Provider Internal Medicine Gastroenterology
PROC: 0DJ08ZZ Inspection of Upper Intestinal Tract, Via Natural or Artificial Opening Endoscopic (ICD-10-PCS; CPT 43235; principal; 2021-09-05 13:25)
DX: K29.50 Unspecified chronic gastritis without bleeding (principal); E78.00 Pure hypercholesterolemia, unspecified; K21.00 Gastro-esophageal reflux disease with esophagitis, without bleeding; Z87.891 Personal history of nicotine dependence; Z79.899 Other long term (current) drug therapy; Z80.0 Family history of malignant neoplasm of digestive organs
CPT/HCPCS: 43239; 88305; 88313; 88342; J7120; J2405

== ENCOUNTER → 2021-12-19 | Outpatient (CLI) | payer MEDICARE, OTHER, SELFPAY ==
--- NOTE | 2021-12-19 08:17 | BI_ITS ---
MAMMOGRAPHY - BILATERAL SCREENING REASON FOR EXAM: Female, 81 years old. Routine annual screening examination. PERTINENT HISTORY: Sister with breast cancer. TECHNIQUE: Digital bilateral breast martin (3D mammographic acquisition) in the CC and MLO projections. 2-D mediolateral oblique (MLO) and craniocaudad (CC) views of both breasts were obtained. CAD: Full Field Digital Mammography with Computer Added Detection was performed. COMPARISON: Comparison is made with prior study dated 12/16/2020 and 11/10/2019. FINDINGS: Breast Composition: There are scattered areas of fibroglandular density. There are no dominant masses or suspicious calcifications. Stable small benign appearing bilateral axillary lymph nodes. No other significant abnormalities are identified. There has been no significant change since the prior study. BI/SCRN MAMM (CAD)W/MARTIN BILAT IMPRESSION: Stable bilateral screening mammogram. Yearly follow-up mammogram recommended. (A) ASSESSMENT CATEGORY: BIRADS Category 2: Benign. A letter regarding these results will be sent to the patient by the facility within 30 days. Approximately 10% of breast cancers are not detected by mammography. A normal mammogram should not delay biopsy of a clinically suspicious abnormality. [id number] Electronically Signed: Marlon Marmolejo MD at 10:14 EDT ,
== END | disposition home or self-care (01) ==
LOC: OPBI 08:15
PROVIDERS: PCP Family Medicine; Referring Provider Family Medicine; Visit Provider Family Medicine
DX: Z12.31 Encounter for screening mammogram for malignant neoplasm of breast (principal)
CPT/HCPCS: 77063; 77067

== ENCOUNTER → 2022-05-10 | Outpatient (CLI) | payer MEDICARE, OTHER, SELFPAY ==
--- NOTE | 2022-05-10 | IMM_PTH ---
PATIENT: CORINNE HANKS LOC: [facility] U#:[id number] AGE/SX: 82/F ROOM: RE05/10/[address]: Dr. Austin Segura MD : 1940 BED: DIS: 05/10/2022 SPEC #: [id number] RECD: 05/15/22 08:58 STATUS: VINOD REQ #: [id number] RAUL: 05/10/22 00:[address]: Austin Segura DEPT: IMMUNOHISTOCHEMISTRY RECD BY: Carolin Turenr ENTERED: 05/15/22 08:59 SP TYPE: IMMUNO OTHR DR: Dr. Charlotte Sharif MD Tissues: Skin of face, NOS Procedures: BCL-2 (add) CD10 (add) CK5-6 (add) KI-67 (add) P53 (add) 34BE12 (add) Pankeratin (initial) MELAN-A (add) P40 (add) S-100 (add) PHYSICIAN & [address] [address] SPECIMEN INFORMATION: Tissue Source: Left cheek skin lesion Clinical Info: Left cheek skin lesion Specimen Number: [id number] CPT code: 26548, 71715 x9 METHODOLOGY: Deparaffinized sections of prefer/formalin-fixed tissue or PAP/DQ stained slides are incubated with monoclonal/polyclonal antibodies/oligonucleotide probes. Localization is made via biotin free immunoperoxidase method. Appropriate controls are performed and reacted as expected. Results on target cell population are indicated in the following table: RESULTS: ANTIBODY / CLONE RESULT AE1-3 (AE1/AE3/PCK26) positive CD10 (56C6) negative BCL-2 (bcl-2/100/D5) negative 34BE12 (34BE12) positive Melan A (A103) positive, in nevus S-100 (4C4.9) positive, in nevus CK5-6 (D5 & 1684) positive P40 (BC28) positive P53 (DO-7) negative Ki-67 (30-9) positive, low These tests were developed and their performance characteristics determined by [facility]. They may not have been cleared or approved by the U.S. Food and Drug Administration. The FDA has determined that such clearance or approval is not necessary. The above immunohistochemical/dualISH markers are ordered and reviewed by the Pathologist. INTERPRETATION: Skin lesion of left cheek, biopsy: -Actinic Keratosis with focal severe atypia. -Intradermal nevus AM:cc 05/16/22
--- NOTE | 2022-05-10 09:00 | LES_PTH ---
PATIENT: CORINNE HANKS LOC: [facility] U#:[id number] AGE/SX: 82/F ROOM: RE05/10/[address]: Dr. Austin Segura MD : 1940 BED: DIS: 05/10/2022 SPEC #: [id number] RECD: 05/10/22 13:45 STATUS: VINOD REBernardo #: [id number] RAUL: 05/10/22 09:[address]: Austin Segura DEPT: SURGICAL PATHOLOGY RECD BY: Val Zimmerman ENTERED: 05/11/22 12:45 SP TYPE: Lesion OTHR DR: Dr. Charlotte Sharif MD Tissues: Skin of face, NOS Procedures: Surgery Specimen Level IV HEADER OPERATION: Excision of left cheek skin lesion PRE-OP DIAGNOSIS: Left cheek skin lesion TISSUE SUBMITTED: Left cheek skin lesion MICROSCOPIC DIAGNOSIS Skin lesion of left cheek, biopsy: Actinic change with focal moderate to severe atypia. Parakeratosis. Extensive solar elastosis. Intradermal nevus. See comment. AM:steph 05/14/2022 COMMENT The lesion appears to have been completely excised in the planes examined. Immunohistochemistry ([id number]) supports the above diagnosis. Case has been reviewed in consultation with Dr. Xie who concurs with the above diagnosis. IDC:VANDA MICROSCOPIC DESCRIPTION Slides are reviewed. GROSS DESCRIPTION Received in fixative is one container labeled with the patient's name and designated left cheek skin lesion. The specimen consists of a piece of danielle-white skin ellipse measuring 1.8 x 1 cm and up to 0.4 cm in thickness. The specimen is inked, serially sectioned and submitted entirely in one cassette. / VANDA:steph 05/11/2022 TC:0 CPT: 83763
== END | disposition home or self-care (01) ==
LOC: LABSPEC 13:54
PROVIDERS: PCP Family Medicine; Referring Provider Surgery; Visit Provider Surgery
DX: L57.8 Other skin changes due to chronic exposure to nonionizing radiation (principal)
CPT/HCPCS: 88305; 88341; 88342

== ENCOUNTER → 2022-10-01 | Outpatient (CLI) | payer MEDICARE, OTHER, SELFPAY ==
--- NOTE | 2022-10-01 16:48 | CT_ITS ---
STUDY: CT FACIAL BONES WITHOUT CONTRAST REASON FOR EXAM: Female, 82 years old. SINUSITIS. Headaches and dizziness. RADIATION DOSAGE (If Supplied By Facility): CTDIvol = ( 28.14 ) mGy, DLP = ( 703.98 ) mGycm TECHNIQUE: The patient was scanned in a multi detector CT scanner. Sagittal and coronal images were reconstructed. Individualized dose optimization techniques were used for this CT. COMPARISON: None. FINDINGS: Normal soft tissue structures. Normal orbital garcia and orbital contents. Normal nasal bones and anterior nasal spine. Normal facial bones. There is no demonstrated fracture. Minimal mucosal thickening along the lateral wall of the right maxillary sinus. CT/Sinus/Facial Bone IMPRESSION: Minimal mucosal thickening along the lateral wall of the right maxillary sinus. Electronically Signed: Marlon Marmolejo MD at 11:07 EDT ,
== END | disposition home or self-care (01) ==
LOC: CT 16:39
PROVIDERS: PCP Family Medicine; Visit Provider Otolaryngology
DX: J32.8 Other chronic sinusitis (principal)
CPT/HCPCS: 70486

== ENCOUNTER → 2022-12-04 | Outpatient (CLI) | payer MEDICARE, OTHER, SELFPAY ==
[2022-12-04 15:18] LABS: Absolute Lymphocyte Count 12.41 X10^3/uL (0.83-4.51); Absolute Neutrophil Count 5.7 X10^3/uL (2.0-7.7); Basophil# 0.04 X10^3/uL; Basophil% 0.2 % (0-1); Differential Indicated SCAN CRITERIA MET; Eosinophil# 0.16 X10^3/uL; Eosinophils% 0.9 % (0-5); Hematocrit 41.9 % (37-47); Lymphocyte # 12.41 X10^3/ul (0.83-4.51); Mean Corpuscular Hgb 30.2 pg (27.0-32.0); Mean Corpuscular Volume 97.4 fL (81-99); Mean Platelet Vol. 12.4 fl (6.2-12.0); Monocyte# 0.43 X10^3/uL; Monocyte% 2.3 % (0-10); NRBC Flagged by Analyzer 0 % (0-5); Neutrophil # 5.71 X10^3/uL (2.7-7.7); Neutrophil % 30.3 % (47-70); POSITIVE DIFFERENTIAL YES; Platelet Count 266 K/mm3 (150-450); RBC Distribution Width CV 14.8 % (11.6-14.6); RBC Distribution Width SD 53.2 fl (35.1-43.9); White Blood Count 18.8 K/mm3 (4.4-11.0)
[2022-12-04 15:42] LABS: Differential Comment SCANNED
[2022-12-04 16:03] LABS: ALB/GLOB Ratio 1.4 RATIO (0.9-2.4); AST(SGOT) 26 U/L (15-37); Alanine Aminotransfer ALT/SGPT 22 U/L (13-56); Albumin, Serum 4.1 g/dL (3.2-5.0); Alkaline Phosphatase 62 U/L (45-117); Anion Gap 7 (5-15); BUN 26 mg/dL (7-18); BUN/Creat Ratio 34.9 RATIO (10-20); Calcium,Total 9.3 mg/dL (8.5-10.1); Chloride 110 mmol/L (98-107); Cholesterol 177 mg/dL (200); Creatinine, Serum 0.74 mg/dL (0.55-1.02); EST Glomerular Filtration Rate 79 mL/min (>60); Est Glom Filt Rate - Afr Amer 96 mL/min (>60); Globulin 2.9 g/dL (2.2-4.2); Glucose 91 mg/dL (74-106); High Density Lipoprotein 89 mg/dL; Potassium 4.5 mmol/L (3.5-5.1); Sodium Level 141 mmol/L (136-145); Triglycerides 77 mg/dL; Very Low Density Lipoprotein 15 mg/dL (5-40)
== END | disposition home or self-care (01) ==
PROVIDERS: PCP Family Medicine; Referring Provider Family Medicine; Visit Provider Family Medicine
DX: Z00.00 Encounter for general adult medical examination without abnormal findings (principal); E78.5 Hyperlipidemia, unspecified
CPT/HCPCS: 36415; 80053; 80061; 85025

== ENCOUNTER → 2023-01-29 | Outpatient (CLI) | payer MEDICARE, OTHER, SELFPAY ==
--- NOTE | 2023-01-29 12:11 | BI_ITS ---
MAMMOGRAPHY - BILATERAL SCREENING REASON FOR EXAM: Female, 82 years old. Routine annual screening examination. PERTINENT HISTORY: Sister with breast cancer. TECHNIQUE: Digital bilateral breast martin (3D mammographic acquisition) in the CC and MLO projections. 2-D mediolateral oblique (MLO) and craniocaudad (CC) views of both breasts were obtained. CAD: Full Field Digital Mammography with Computer Added Detection was performed. COMPARISON: Comparison is made with prior examination dated December 19, 2021 and December 16, 2020. FINDINGS: Breast Composition: There are scattered areas of fibroglandular density. There are no dominant masses or suspicious calcifications. No other significant abnormalities are identified. There has been no significant change since the prior study. BI/SCRN MAMM (CAD)W/MARTIN BILAT IMPRESSION: Stable bilateral screening mammogram. Yearly follow-up mammogram recommended. (A) ASSESSMENT CATEGORY: BIRADS Category 1: Negative. A letter regarding these results will be sent to the patient by the facility within 30 days. Approximately 10% of breast cancers are not detected by mammography. A normal mammogram should not delay biopsy of a clinically suspicious abnormality. [id number] Electronically Signed: Marlon Marmolejo MD at 13:49 EDT ,
== END | disposition home or self-care (01) ==
LOC: OPBI 12:10
PROVIDERS: PCP Family Medicine; Referring Provider Family Medicine; Visit Provider Family Medicine
DX: Z12.31 Encounter for screening mammogram for malignant neoplasm of breast (principal)
CPT/HCPCS: 77063; 77067

== ENCOUNTER 2023-06-22 18:43 | Observation (INO) | payer MEDICARE, OTHER, SELFPAY ==
[2023-06-22 18:44] VITALS: BP 172/90; PULSE 52; RESP 16; TEMP 36.6; O2SAT 97
--- NOTE | 2023-06-22 19:00 | EDS_ITS ---
HPI <GENEVA Chaudhry - Last Filed: 06/22/23 21:28> History of Present Illness Chief Complaint: Dizziness Narrative Narrative: 83-year-old female woke up and walked to the bathroom and when she got back she felt dizzy described as a spinning sensation. It is worse with opening her eyes or head movement. When the spinning occurs she vomits. She has no chest pain or shortness of breath. No history of similar symptoms. No headache, visual changes, or focal motor or sensory changes. No recent fever or upper respiratory symptoms. PFSH <GENEVA Chaudhry - Last Filed: 06/22/23 21:28> [facility] Medical History Acid reflux Alcohol use Arthritis Bladder disease Cancer Cardiology follow-up encounter Chronic lymphatic leukemia Diarrhea Family history of colon cancer in mother Former smoker Frequent headaches GERD (gastroesophageal reflux disease) GERD without esophagitis Hemorrhoids Hiatal hernia High cholesterol History of back problems History of edema History of irregular heartbeat History of leukemia History of pain when walking History of stress test IBS (irritable bowel syndrome) Injury of head and neck Irritable bowel syndrome with diarrhea Microscopic colitis Restless legs Small bowel obstruction Wears glasses Wears glasses Wears hearing aid Home Medications omeprazole 20 mg capsule,delayed release 20 mg PO DAILY 11/04/13 [History Last Taken 09/05/21 07:30] coenzyme Q10 100 mg capsule (Co Q-10) 100 mg PO DAILY 07/10/18 [History Last Taken Unknown] loperamide 2 mg tablet (Anti-Diarrheal (loperamide)) 2 mg PO Q1-4H PRN Diarrhea 07/10/18 [History Last Taken Unknown] simvastatin 20 mg tablet 40 mg PO QHS 07/10/18 [History Last Taken Unknown] therapeutic multivitamin (Thera tablet) 1 ea PO DAILY 07/22/18 [History Last Taken Unknown] ascorbic acid 7.5 mg-vit E 7.5 unit-biotin 1,250 mcg chewable tablet (Hair,Skin,Nails with Biotin) 2 tab PO DAILY 02/22/21 [History Last Taken Unknown] cholecalciferol (vitamin D3) 50 mcg (2,000 unit) tablet (Vitamin D3) 50 mcg PO DAILY 02/22/21 [History Last Taken Unknown] doxylamine succinate 25 mg tablet (Unisom (doxylamine)) 25 mg PO QHS PRN Sleep 02/22/21 [History Last Taken Unknown] krill oil 500 mg capsule 500 mg PO DAILY 02/22/21 [History Last Taken Unknown] oxybutynin chloride 10 mg tablet,extended release 24 hr (Ditropan XL) 10 mg PO DAILY 02/22/21 [History Last Taken Unknown] turmeric 100 mg-jayleen 150 mg-olive 50 mg-oreg 150 mg-capryl capsule 2 cap PO DAILY 02/22/21 [History Last Taken Unknown] vit C 250 mg-vit E 90 mg-zinc 40 mg-copper 1 [id number]-ruwhbq-wciqei capsule (PreserVision AREDS-2) 1 tab PO BID 02/22/21 [History Last Taken Unknown] vitamin B12 1,000 mcg-folic acid 400 mcg sublingual lozenge 1 lonnie sublingual DAILY 02/22/21 [History Last Taken Unknown] pramipexole 0.125 mg tablet 0.125 mg PO QHS 08/30/21 [History Last Taken Unknown] pantoprazole 40 mg tablet,delayed release (Protonix) 40 mg PO BID #180 tabs 09/14/21 [Rx Last Taken Unknown] sucralfate 1 gram tablet (Carafate) 1 g PO QAC #90 tabs 09/14/21 [Rx Last Taken Unknown] colestipol 1 gram tablet (Colestid) 1 g PO BID PRN diarrhea #180 tabs 01/22/23 [Rx Last Taken Unknown] Allergy/AdvReac Type Severity Reaction Status Date / Time aspirin [ASA] AdvReac NEVER Verified 06/22/23 18:44 TAKES EMPTY STOMACH codeine AdvReac Nausea Verified 06/22/23 18:44 Family History Mother Arthritis Colon cancer Sister Breast cancer Surgical History H/O total shoulder replacement history left vein stripping history leftpartial knee replacement History of bilateral carpal tunnel release History of History of esophagogastroduodenoscopy (EGD) History of laparoscopic cholecystectomy History of surgical removal of skin lesion History of tonsillectomy and adenoidectomy History of total abdominal hysterectomy and bilateral salpingo-oophorectomy Hx of appendectomy Hx of colonoscopy Hx of hemorrhoidectomy Hx of resection of small bowel Social History Smoking Status: Former smoker alcohol intake: current substance use type: does not use ROS <GENEVA Chaudhry - Last Filed: 06/22/23 21:28> ROS ED ROS Narrative Constitutional: Negative for fever, chills, malaise. Eyes: Negative for visual change. CVS: Negative for chest pain, syncope. Respiratory: Negative for shortness of breath. GI: Positive for nausea, vomiting. Neuro: Negative for headache. EXAM <GENEVA Chaudhry - Last Filed: 06/22/23 21:28> Physical Exam Narrative Exam Narrative: CONST: Patient sitting in no acute distress. EYES: Normal inspection. PERRL, EOMI, horizontal nystagmus. ENT: Normal inspection, moist mucous membranes. NECK: Normal inspection. RESP: No respiratory distress, CTAB. CVS: Regular rate and rhythm, no murmur, no gallop. ABD: Soft and nontender, no guarding or rebound, nondistended. SKIN: Color normal, no rash, warm, dry, intact. EXTREMITIES: Normal appearance, no pedal edema. NEURO: Oriented x4. Face symmetric, normal canibp-sv-qnnr and lexl-nu-quhk bilaterally. PSYCH: Normal affect. Const Vital Signs: 06/22/23 18:44 06/22/23 18:45 06/22/23 20:34 Temperature 98 F Temperature Source Temporal Pulse Rate 52 L 60 Respiratory Rate 16 18 Respiratory Pattern Normal Blood Pressure 172/90 H 141/86 H Blood Pressure Mean 117 104 Pulse Ox 97 97 Oxygen Delivery Method Room Air <Dr. Fabricio Smith MD - Last Filed: 06/22/23 23:19> Physical Exam Const Vital Signs: 06/22/23 18:44 06/22/23 18:45 06/22/23 20:34 Temperature 98 F Temperature Source Temporal Pulse Rate 52 L 60 Respiratory Rate 16 18 Respiratory Pattern Normal Blood Pressure 172/90 H 141/86 H Blood Pressure Mean 117 104 Pulse Ox 97 97 Oxygen Delivery Method Room Air MDM <GENEVA Chaudhry - Last Filed: 06/22/23 21:28> MDM MDM Narrative Medical decision making narrative: History gathered from: Patient and daughter Differential: Peripheral versus central vertigo Patient presents with room spinning associated with head movements and nausea and vomiting that started this morning. No headache or other focal neurological symptoms. BP 172/90, HR 55, otherwise normal vital signs. She has horizontal nystagmus on exam. HEENT exam otherwise normal. Neurologically intact. No signs of cerebellar ataxia on exam. She was treated with Zofran and after nausea/vomiting subsided ED attending performed an Caren maneuver. Patient was able to ambulate and states she still feels lousy but no longer dizzy; however after sitting down with a positional change she again had spinning and was ordered Valium. She was reassessed around 9:20 PM. She feels better but is still unsteady with walking. Her symptoms still sound consistent with BPPV but due to her age and the fact she lives alone and is still unsteady I feel she needs admitted for observation. Case was discussed with the hospitalist. <Dr. Fabricio Smith MD - Last Filed: 06/22/23 23:19> [facility] Narrative Medical decision making narrative: History gathered from: Patient and daughter Differential: Peripheral versus central vertigo Patient presents with room spinning associated with head movements and nausea and vomiting that started this morning. No headache or other focal neurological symptoms. BP 172/90, HR 55, otherwise normal vital signs. She has horizontal nystagmus on exam. HEENT exam otherwise normal. Neurologically intact. No signs of cerebellar ataxia on exam. She was treated with Zofran and after nausea/vomiting subsided ED attending performed an Caren maneuver. Patient was able to ambulate and states she still feels lousy but no longer dizzy; however after sitting down with a positional change she again had spinning and was ordered Valium. She was reassessed around 9:20 PM. She feels better but is still unsteady with walking. Her symptoms still sound consistent with BPPV but due to her age and the fact she lives alone and is still unsteady I feel she needs admitted for observation. Case was discussed with the hospitalist. I have personally performed a face to face assessment of the patient and have reviewed the MILLER Note. I performed a substantive portion of the visit including all aspects of the following. My pritchard findings include: History is remarkable for vertigo that is abrupt with movement of head. She denies double vision, blurred vision loss of vision. Denies trouble with speech or swallowing. She does endorse nausea and vomiting. She denies any recent head trauma. She denies headache. Denies neck pain or neck stiffness. Denies cardiac or respiratory symptoms. Exam is remarkable for positive [place]-Hallpike maneuver to the left. Alert oriented x 3. Cranials 2 through 12 intact. No dysmetria. Motor 5/5. Sensations intact. DTRs are 1-2+ bicep, brachialis, tricep, patella and ankle. There is no clonus Babinski sign noted. The eye askew test and hints test were both negative. Medical Decision Making since his symptoms are positional and she has a positive Messi-Hallpike maneuver Caren maneuver was performed. Patient's nystagmus fatigued with Caren's maneuver. She had transient relief. When it attempt to ambulate patient failed. She would veer off to the right. In light of this patient was given Valium. She was reassessed. She still had problems ambulating. Hospitalist was called and will be admitted for paroxysmal benign positional vertigo with inability to ambulate. Other additions or changes: Admit/observation status for inability to ambulate due to paroxysmal benign positional vertigo Procedures <Dr. Fabricio Smith MD - Last Filed: 06/22/23 23:19> Other Procedures Procedure(s): Caren maneuver: Patient Messi-Hallpike maneuver was positive with her head to the left only. The Caren maneuver was started with patient's head and body to the left. She had significant nystagmus with the original upward deflection and fast component to the right. This took about 10 to 12 minutes to resolve. She was then placed so that her head was looking to the right. She had nystagmus that was not as significant. After 5 minutes her symptoms resolved. She is now in the last position with her torso upright and neck flexed 20 degrees. Will reassess in 5 to 10 minutes. Total time for procedure 22 minutes Discharge Plan Dx/Rx/DC Orders Clinical Impression: Benign paroxysmal positional vertigo Disposition Disposition: Acute Care [facility] Discharge Date/Time: 06/22/23 22:40
[2023-06-22] MEDS: Ondansetron ODT 4 MG Tablet PO (19:14)
[2023-06-22 19:15] VITALS: BMI 28.3
[2023-06-22] MEDS: diazePAM 2 MG Tablet PO (20:32)
[2023-06-22 20:34] VITALS: BP 141/86; PULSE 60; RESP 18; O2SAT 97
--- NOTE | 2023-06-22 21:26 | HP.PCM.HOS_ITS ---
[facility] - General General Date of Admission: 06/22/23 Date of Service: 06/22/23 Chief Complaint: Vertigo. [facility] Narrative CORINNE KNIGHT, is a 83 F with a past medical history of hyperlipidemia, overweight; with BMI of 28.3 this admission, remote history of tobacco abuse (quit 1970), history of chronic lymphocytic leukemia, history of small bowel obstruction; status post partial small bowel resection, history of laparoscopic cholecystectomy, history of HANNAH/BSO, history of appendectomy, history of hemorrhoids; status post hemorrhoidectomy, IBS; of diarrheal type, RLS, overactive bladder, GERD and osteoarthritis; with degenerative disc disease and low back pain who presents to [facility] ER complaining of dizziness. Ms. Knight reports her symptoms began approximately 1 hour prior to arrival when she woke up and went to the bathroom and abruptly became extremely dizzy with a spinning sensation that was persistent and was made worse with opening her eyes or with head movement. She also admits to corresponding nausea followed by bilious emesis. She denies a history of similar previous episodes. She also denies associated fever, chills, shortness of breath, headache, visual changes, paresthesias or focal motor deficits. In the ER she was noted to have a positive [employer]-Hallpike test and did initially respond to Caren maneuver but then she became vertiginous again with generalized weakness and ambulatory dysfunction and she was then admitted to the general medical floor under observation status for ongoing care for stay that is expected to be less than 48 hours. [facility] Medical History Acid reflux Alcohol use Arthritis Bladder disease Cancer Cardiology follow-up encounter Chronic lymphatic leukemia Diarrhea Family history of colon cancer in mother Former smoker Frequent headaches GERD (gastroesophageal reflux disease) GERD without esophagitis Hemorrhoids Hiatal hernia High cholesterol History of back problems History of edema History of irregular heartbeat History of leukemia History of pain when walking History of stress test IBS (irritable bowel syndrome) Injury of head and neck Irritable bowel syndrome with diarrhea Microscopic colitis Restless legs Small bowel obstruction Wears glasses Wears glasses Wears hearing aid Home Medications omeprazole 20 mg capsule,delayed release 20 mg PO DAILY 11/04/13 [History Last Taken 06/21/23 06:00] coenzyme Q10 100 mg capsule (Co Q-10) 100 mg PO DAILY 07/10/18 [History Last Taken 06/21/23 21:00] loperamide 2 mg tablet (Anti-Diarrheal (loperamide)) 2 mg PO Q1-4H PRN Diarrhea 07/10/18 [History Last Taken Unknown] simvastatin 20 mg tablet 40 mg PO QHS 07/10/18 [History Last Taken 06/21/23 21:00] therapeutic multivitamin (Thera tablet) 1 ea PO DAILY 07/22/18 [History Last Taken 06/21/23 09:00] ascorbic acid 7.5 mg-vit E 7.5 unit-biotin 1,250 mcg chewable tablet (Hair,Skin,Nails with Biotin) 2 tab PO DAILY 02/22/21 [History Last Taken Unknown] cholecalciferol (vitamin D3) 50 mcg (2,000 unit) tablet (Vitamin D3) 50 mcg PO DAILY 02/22/21 [History Last Taken Unknown] doxylamine succinate 25 mg tablet (Unisom (doxylamine)) 25 mg PO QHS PRN Sleep 02/22/21 [History Last Taken Unknown] krill oil 500 mg capsule 500 mg PO DAILY 02/22/21 [History Last Taken Unknown] oxybutynin chloride 10 mg tablet,extended release 24 hr (Ditropan XL) 10 mg PO DAILY 02/22/21 [History Last Taken 06/21/23 09:00] turmeric 100 mg-jayleen 150 mg-olive 50 mg-oreg 150 mg-capryl capsule 2 cap PO DAILY 02/22/21 [History Last Taken Unknown] vit C 250 mg-vit E 90 mg-zinc 40 mg-copper 1 [id number] capsule (PreserVision AREDS-2) 1 tab PO BID 02/22/21 [History Last Taken 06/20/23] vitamin B12 1,000 mcg-folic acid 400 mcg sublingual lozenge 1 lonnie sublingual DAILY 02/22/21 [History Last Taken 06/21/23 09:00] pramipexole 0.125 mg tablet 0.5 mg PO QHS restless legs 08/30/21 [History Last Taken 06/21/23 21:00] pantoprazole 40 mg tablet,delayed release (Protonix) 40 mg PO BID #180 tabs 09/14/21 [Rx Last Taken Unknown] colestipol 1 gram tablet (Colestid) 1 g PO BID PRN diarrhea #180 tabs 01/22/23 [Rx Last Taken Unknown] Allergy/AdvReac Type Severity Reaction Status Date / Time aspirin [ASA] AdvReac NEVER Verified 06/22/23 18:44 TAKES EMPTY STOMACH codeine AdvReac Nausea Verified 06/22/23 18:44 Family History Mother Arthritis Colon cancer Sister Breast cancer Surgical History H/O total shoulder replacement history left vein stripping history leftpartial knee replacement History of bilateral carpal tunnel release History of History of esophagogastroduodenoscopy (EGD) History of laparoscopic cholecystectomy History of surgical removal of skin lesion History of tonsillectomy and adenoidectomy History of total abdominal hysterectomy and bilateral salpingo-oophorectomy Hx of appendectomy Hx of colonoscopy Hx of hemorrhoidectomy Hx of resection of small bowel Social History Smoking Status: Former smoker alcohol intake: current substance use type: does not use ROS ROS Narrative Review of systems: General: Patient denies fever or chills. HENT: Patient admits to worsening dizziness with head movement and opening her eyes as per HPI but she denies headache, denies stuffy nose, denies sore throat EYES: Denies changes in vision Resp: Denies cough, denies shortness of breath Cardiac: Denies chest pain or palpitations. GI: Patient admits to nausea followed by bilious emesis as per HPI but she denies abdominal pain or changes in bowel. : Denies changes in urination Extremity: Patient mitts to occasional intermittent lower extremity swelling. Musculoskeletal: Feels somewhat generally weak and unwell with inability to ambulate secondary to dizziness and GI upset. Neuro: Patient denies headache, paresthesias or focal neurologic deficits. Heme: Denies any bleeding or bruising Skin: Denies rashes Psychiatric: No complaints voiced related to uncontrolled depression or anxiety. Endocrine: No polyuria, polydipsia or polyphagia. The rest of the 14 point ROS was negative except for positives in HPI. Vital Signs Vital Signs Vital Signs: 06/22/23 18:44 06/22/23 18:45 06/22/23 20:34 Temperature 98 F Temperature Source Temporal Pulse Rate 52 L 60 Respiratory Rate 16 18 Respiratory Pattern Normal Blood Pressure 172/90 H 141/86 H Blood Pressure Mean 117 104 Pulse Ox 97 97 Oxygen Delivery Method Room Air Weight Weight: 130 lb 15.273 oz Body Mass Index (BMI) 28.3 Physical Exam Const alert, oriented x3 and average body habitus Constitutional Narrative: Mild distress noted. General Appearance: cooperative HEENT normocephalic, head/scalp atraumatic, hearing grossly normal bilaterally and moist oral mucous membranes Eyes PERRL and EOMs intact bilaterally Neck no lymphadenopathy and supple Resp normal respiratory effort, no retractions, no use of accessory muscles and clear to auscultation bilaterally Cardio regular rate and regular rhythm GI normal to inspection, nondistended, normoactive bowel sounds, soft to palpation, non-tender and non-distended Extremity normal to inspection and full ROM Skin Skin Narrative: Patient has no evidence of rash at this time. Neuro oriented x3, CN's II-XII intact bilaterally, moves all extremities and no focal motor deficits Sensorium / Orientation: awake, alert, oriented to person, oriented to place and oriented to time Speech: speech normal Psych affect normal Results Medical Records Data Attestation: I reviewed the patient's medical records Lab / Micro Data Attestation: I reviewed the patient's lab results. Assessment & Plan Assessment/Plan (1) Benign paroxysmal positional vertigo: QUALIFIERS: Laterality: left Qualified Code(s): H81.12 - Benign paroxysmal vertigo, left ear (2) Nausea and vomiting: QUALIFIERS: Vomiting type: unspecified Qualified Code(s): R11.2 - Nausea with vomiting, unspecified (3) Generalized weakness: PLAN: Plan 1. BPPV with nausea and bilious emesis - Admit to general medical floor under observation status and on aspiration precautions. Give Antivert 25 mg p.o. every 8 hours as needed for breakthrough vertigo. Start scopolamine patch 1.5 mg topical every 72 hours and remove in case of any significant anticholinergic side effects. Give IV Zofran as needed nausea or vomiting. 2. Generalized weakness with ambulatory dysfunction due to #1 - PT/OT and case management consult and treat on rounds in the a.m. for further recommendations without appreciated in advance. 3. Hyperlipidemia - Continue statin. 4. Overweight; with BMI of 28.3 this admission - Weight loss will be recommended. 5. Remote history of tobacco abuse (quit 1970) - Noted. 6. History of chronic lymphocytic leukemia - Noted. 7. History of small bowel obstruction; status post partial small bowel resection - Noted. 8. History of laparoscopic cholecystectomy - Noted. 9. history of HANNAH/BSO, history of appendectomy - Stable. 10. History of hemorrhoids; status post hemorrhoidectomy - Noted. 11. IBS; of diarrheal type - Stable. Resume Loperamide as needed. 12. RLS - Stable. 13. Overactive bladder - Continue current regimen. 14. GERD - Resume Protonix 40 mg PO BID and sucralfate as previous. 15. Osteoarthritis; with degenerative disc disease and low back pain - Stable. Give Tylenol prn. 16. DVT prophylaxis - Lovenox 40 mg sq daily. Total time: Approximately 45 minutes. Charges/Coding Visit Charges OBSV E&M: 92972 Observ/hosp same date L1
[2023-06-22 21:51] VITALS: BP 150/83; PULSE 91; RESP 18; TEMP 36.6; O2SAT 96
[2023-06-22 22:16] VITALS: BP 152/75; PULSE 87; RESP 16; O2SAT 98
[2023-06-22 22:37] VITALS: BMI 27.3
[2023-06-22 23:00] VITALS: BP 145/81; PULSE 92; RESP 16; TEMP 36.6; O2SAT 100
[2023-06-22] MEDS: 0.9% Normal Saline (1000mL) 1,000 ML 70 ML IV (23:35)
[2023-06-22] MEDS: 0.9% Saline Lock 10 ML Syringe IV (23:36)
[2023-06-23] MEDS: Scopolamine 1mg/72hr Patch 1 PATCH TD (00:01)
[2023-06-23] MEDS: Meclizine HCl 25 MG Tablet PO ×2 (00:01→09:39)
[2023-06-23 05:00] VITALS: BP 110/53; PULSE 54; RESP 16; TEMP 36.6; O2SAT 95
[2023-06-23 06:00] VITALS: BMI 28.3
[2023-06-23 06:37] LABS: Absolute Lymphocyte Count 14.08 X10^3/uL (0.83-4.51); Absolute Neutrophil Count 6.1 X10^3/uL (2.0-7.7); Basophil# 0.03 X10^3/uL; Basophil% 0.1 % (0-1); Eosinophil# 0.01 X10^3/uL; Hematocrit 40.1 % (37-47); Hemoglobin 12.9 g/dL (12.0-15.0); Lymphocyte # 14.08 X10^3/ul (0.83-4.51); Mean Corp Hgb Conc 32.2 g/dL (32-36); Mean Corpuscular Hgb 30.3 pg (27.0-32.0); Mean Corpuscular Volume 94.1 fL (81-99); Mean Platelet Vol. 11.7 fl (6.2-12.0); Monocyte# 0.46 X10^3/uL; Monocyte% 2.2 % (0-10); NRBC Flagged by Analyzer 0 % (0-5); Neutrophil # 6.08 X10^3/uL (2.7-7.7); Neutrophil % 29.5 % (47-70); POSITIVE DIFFERENTIAL YES; Platelet Count 237 K/mm3 (150-450); RBC Distribution Width SD 51.8 fl (35.1-43.9); Red Blood Count 4.26 M/mm3 (4.2-5.4); White Blood Count 20.7 K/mm3 (4.4-11.0)
[2023-06-23 06:38] LABS: Differential Indicated SCAN CRITERIA MET
[2023-06-23 07:11] LABS: ALB/GLOB Ratio 1.2 RATIO (0.9-2.4); AST(SGOT) 23 U/L (15-37); Alanine Aminotransfer ALT/SGPT 18 U/L (13-56); Albumin, Serum 3.6 g/dL (3.2-5.0); Alkaline Phosphatase 54 U/L (45-117); Anion Gap 5 (5-15); BUN 23 mg/dL (7-18); BUN/Creat Ratio 32.6 RATIO (10-20); Calcium,Total 8.9 mg/dL (8.5-10.1); Chloride 109 mmol/L (98-107); Creatinine, Serum 0.71 mg/dL (0.55-1.02); EST Glomerular Filtration Rate 84 mL/min (>60); Est Glom Filt Rate - Afr Amer 102 mL/min (>60); Estimated Creatinine Clearance 43.05 ml/min; Globulin 2.9 g/dL (2.2-4.2); Glucose 89 mg/dL (74-106); Magnesium 2.2 mg/dL (1.6-2.6); Phosphorus 3.6 mg/dL (2.5-4.9); Potassium 4.2 mmol/L (3.5-5.1); Protein, Total 6.5 g/dL (6.4-8.2); Sodium Level 140 mmol/L (136-145); Thyroid Stim Hormone (TSH) 1.24 uIU/mL (0.358-3.74)
[2023-06-23 09:35] VITALS: BP 143/63; PULSE 70; RESP 18; TEMP 36.6; O2SAT 97
--- NOTE | 2023-06-23 11:06 | CT_ITS ---
STUDY: CT BRAIN WITHOUT CONTRAST REASON FOR EXAM: Female, 83 years old. Dizziness RADIATION DOSAGE (If Supplied By Facility): CTDIvol = ( 44.99 ) mGy, DLP = ( 745.49 ) mGycm TECHNIQUE: Transaxial CT imaging of the brain was performed without administration of intravenous contrast material. Individualized dose optimization techniques were used for this CT. COMPARISON: No relevant prior comparison study available FINDINGS: PARENCHYMA: There is no acute bleed or infarct. There are chronic ischemic and atrophic changes. VENTRICLES: There is no hydrocephalus. MASTOID AIR CELLS AND PARANASAL SINUSES: The visualized paranasal sinuses are clear. The mastoid air cells are clear. BONES: There is no skull fracture. SOFT TISSUES: The visualized soft tissues are within normal limits. CT/Brain/Head without Contrast IMPRESSION: No acute intracranial abnormality. Chronic ischemic and atrophic changes. Electronically Signed: Bryan Weathers MD at 14:12 EDT ,
[2023-06-23] MEDS: 0.9% Normal Saline (1000mL) 1,000 ML 70 ML IV (11:20)
[2023-06-23] MEDS: Pantoprazole Sodium 20 MG Tablet PO (11:21)
[2023-06-23] MEDS: Multivitamin (Healthy Eyes) Capsule 1 CAP PO (11:21)
[2023-06-23] MEDS: Acetaminophen 325 MG Tablet 650 MG PO (11:21)
[2023-06-23] MEDS: Enoxaparin 40 MG/0.4 ML Syringe SC (11:21)
[2023-06-23] MEDS: Sucralfate 1 GM Tablet PO (11:21)
[2023-06-23] MEDS: Tolterodine Tartrate 2 MG CAP.SA PO (11:21)
--- NOTE | 2023-06-23 14:32 | DCINST_ITS ---
Discharge Instructions Diet Discharge Diet: Low fat / Low cholesterol Activity Discharge Activity: Return to Normal Activity Weight Bearing Status: Weight bearing as tolerated Dressing / Incision Call your doctor if you observe: Fever of 101 or Higher, Shortness of breath, Dizziness, Swelling in the ankles, Chest pain and Increased palpitations (irregular heartbeat) Follow Up Care Test Results: Test results from this visit will be discussed in further detail at your follow- up appointment, if applicable. Discharge Plan Admission Admit Date/Time: 06/22/23 21:42 Primary Reason for Your Visit: BPPV Attending Provider: Sandy Robledo Primary Care Provider: Charlotte Sharif Consulting Providers: Daljit Guillen Instructions Patient Instructions: BPPV Discharge Orders/Prescriptions Prescriptions: New meclizine 25 mg Tablet 25 mg PO Q8H PRN PRN (Reason: Dizziness) Qty: 30 0RF Continued coenzyme Q10 [Co Q-10] 100 mg capsule 100 mg PO DAILY loperamide [Anti-Diarrheal (loperamide)] 2 mg tablet 2 mg PO Q1-4H PRN (Reason: Diarrhea) omeprazole 20 MG capsule 20 mg PO DAILY Patient Comments: acid reflux simvastatin 20 mg tablet 40 mg PO QHS Patient Comments: cholesterol Thera 1 EACH tablet 1 ea PO DAILY oxybutynin chloride [Ditropan XL] 10 mg Tablet Extended Release 24hr 10 mg PO DAILY Unisom (doxylamine) 25 mg Tablet 25 mg PO QHS PRN (Reason: Sleep) cholecalciferol (vitamin D3) [Vitamin D3] 50 mcg (2,000 unit) Tablet 50 mcg PO DAILY krill oil 500 mg Capsule 500 mg PO DAILY PreserVision AREDS-2 250-90-40-1 mg Capsule 1 tab PO BID Hair, Skin, Nails with Biotin 7.5-7.5-1,250 mg-unit-mcg Tablet,Chewable 2 tab PO DAILY vitamin Z70-lfvot acid 1,000-400 mcg Lozenge 1 lonnie SUBLINGUAL DAILY oeoxuzfd-czka-bslhv-oreg-capry 100 mg-150 mg- 50 mg-150 mg Capsule 2 cap PO DAILY pramipexole 0.125 mg tablet 0.5 mg PO QHS Patient Comments: TAKE 1 TABLET BY MOUTH ONCE DAILY AT BEDTIME. MAY INCREASE BY 1 TABLET EVERY 3 NIGHTS UP TO A MAXIMUM OF 4 TABLETS AT BEDTIME pantoprazole [Protonix] 40 mg tablet,delayed release (DR/EC) 40 mg PO BID Qty: 180 1RF Rx Instructions: Take two times a day for eight weeks then once a day for eight weeks. colestipol [Colestid] 1 gram tablet 1 g PO BID PRN (Reason: diarrhea) Qty: 180 3RF Referrals / Follow Up: Charlotte Sharif MD [Primary Care Provider] - Within 2 Weeks Disposition Disposition (needs filled in before D/C Order can be placed): Home, Self Care
--- NOTE | 2023-06-23 14:34 | PCM.DC.SUM ---
Providers Date of Admission: 06/22/23 Date of Discharge: 06/23/23 Primary Care Physician: Dr. Charlotte Sharif MD Reason For Visit: BPPV, NAUSEA WITH VOMITING AND GENERALIZED WEAKNES Diagnosis Discharge Diagnosis (1) Benign paroxysmal positional vertigo: Status: Acute Code(s): H81.10 - Benign paroxysmal vertigo, unspecified ear Qualifiers: Laterality: left Qualified Code(s): H81.12 - Benign paroxysmal vertigo, left ear (2) Nausea and vomiting: Status: Acute Code(s): R11.2 - Nausea with vomiting, unspecified Qualifiers: Vomiting type: unspecified Qualified Code(s): R11.2 - Nausea with vomiting, unspecified (3) Generalized weakness: Status: Acute Code(s): R53.1 - Weakness Medications at Discharge Home Medications omeprazole 20 mg capsule,delayed release 20 mg PO DAILY 11/04/13 coenzyme Q10 100 mg capsule (Co Q-10) 100 mg PO DAILY 07/10/18 loperamide 2 mg tablet (Anti-Diarrheal (loperamide)) 2 mg PO Q1-4H PRN Diarrhea 07/10/18 simvastatin 20 mg tablet 40 mg PO QHS 07/10/18 therapeutic multivitamin (Thera tablet) 1 ea PO DAILY 07/22/18 ascorbic acid 7.5 mg-vit E 7.5 unit-biotin 1,250 mcg chewable tablet (Hair,Skin,Nails with Biotin) 2 tab PO DAILY 02/22/21 cholecalciferol (vitamin D3) 50 mcg (2,000 unit) tablet (Vitamin D3) 50 mcg PO DAILY 02/22/21 doxylamine succinate 25 mg tablet (Unisom (doxylamine)) 25 mg PO QHS PRN Sleep 02/22/21 krill oil 500 mg capsule 500 mg PO DAILY 02/22/21 oxybutynin chloride 10 mg tablet,extended release 24 hr (Ditropan XL) 10 mg PO DAILY 02/22/21 turmeric 100 mg-jayleen 150 mg-olive 50 mg-oreg 150 mg-capryl capsule 2 cap PO DAILY 02/22/21 vit C 250 mg-vit E 90 mg-zinc 40 mg-copper 1 ao-roanok-wigxqw capsule (PreserVision AREDS-2) 1 tab PO BID 02/22/21 vitamin B12 1,000 mcg-folic acid 400 mcg sublingual lozenge 1 lonnie sublingual DAILY 02/22/21 pramipexole 0.125 mg tablet 0.5 mg PO QHS restless legs 08/30/21 pantoprazole 40 mg tablet,delayed release (Protonix) 40 mg PO BID #180 tabs 09/14/21 colestipol 1 gram tablet (Colestid) 1 g PO BID PRN diarrhea #180 tabs 01/22/23 meclizine 25 mg tablet 25 mg PO Q8H PRN PRN Dizziness #30 tabs 06/23/23 Hospital Course Operations None Procedures None Summary of Care Provided Minutes Spent on Discharge: 55 Hospital Course: Patient is an 83-year-old female with a past medical history as outlined was admitted through the ED on 06/22/2023 with a complaint of dizziness. The symptoms began an hour prior to admission. She got up and went to the bathroom and abruptly became dizzy with assisted spinning sensation. It was worse worsened by opening her eyes or with head movements. She denied any focal numbness or tingling or weakness. In the ED [employer]-Hallpike text was positive and she did respond to Caren maneuver but subsequently vertigo recurred. She was therefore admitted to be managed for debility due to vertigo from BPPV. Physical therapy was consulted and she was given a scopolamine patch and started on meclizine. His symptoms improved and she felt much better. CT of the brain was done and did not show any evidence of any acute intracranial pathology. She remained stable and was discharged on 06/23/2023. She was given a prescription for p.o. meclizine and is to follow-up with her primary care doctor within 1 to 2 weeks. Patient seen and examined prior to discharge. Her daughters were by her bedside. She says she felt much better. Dizziness and vertigo had improved and virtually resolved. Review of systems otherwise negative. Labs and vitals reviewed. Home medication reviewed and reconciled. Physical Exam Const alert, oriented x3, no apparent distress and average body habitus General Appearance: cooperative and comfortable HEENT normocephalic, head/scalp atraumatic, hearing grossly normal bilaterally and moist oral mucous membranes Mouth: oral and palatal mucosa normal Eyes PERRL, EOMs intact bilaterally and conjunctivae normal Neck no lymphadenopathy and supple Resp normal respiratory effort, no retractions, no use of accessory muscles and clear to auscultation bilaterally Cardio regular rate, regular rhythm, S1 normal heart sound, S2 normal heart sound and no murmurs GI normal to inspection, nondistended, normoactive bowel sounds, soft to palpation, non-tender and non-distended Extremity normal to inspection, full ROM and no clubbing, cyanosis or edema Skin no rashes or lesions noted, no wounds and skin turgor normal Neuro oriented x3, CN's II-XII intact bilaterally, moves all extremities and no focal motor deficits Sensorium / Orientation: awake, alert, oriented to person, oriented to place and oriented to time Speech: speech normal Motor Exam: strength 5/5 throughout Psych affect normal Weight / BMI Weight Weight: 131 lb 9.855 oz Body Mass Index (BMI) 28.3 ABG / Lab / Microbiology Data 06/23/23 06:13 06/23/23 06:13 Laboratory: Laboratory Results - last 24 hr 06/23/23 06:13: WBC 20.7 H, RBC 4.26, Hgb 12.9, Hct 40.1, MCV 94.1, MCH 30.3, MCHC 32.2, RDW Std Deviation 51.8 H, RDW Coeff of Lory 15.0 H, Plt Count 237, MPV 11.7, Immature Gran % (Auto) 0.200, Neut % (Auto) 29.5 L, Lymph % (Auto) 68.0 H, [place] % (Auto) 2.2, Eos % (Auto) 0.0, Baso % (Auto) 0.1, Absolute Neuts (auto) 6.1, Absolute Lymphs (auto) 14.08 H, Nucleated RBC % 0, Sodium 140, Potassium 4.2, Chloride 109 H, Carbon Dioxide 26.0, Anion Gap 5, BUN 23 H, Creatinine 0.71, Estim Creat Clear Calc 43.05, Est GFR (MDRD) Af Amer 102, Est GFR (MDRD) Non-Af 84, BUN/Creatinine Ratio 32.6 H, Glucose 89, Calcium 8.9, Phosphorus 3.6, Magnesium 2.2, Total Bilirubin 0.90, AST 23, ALT 18, Alkaline Phosphatase 54, Total Protein 6.5, Albumin 3.6, Globulin 2.9, Albumin/Globulin Ratio 1.2, TSH 1.24 Radiography Diagnostic Testing: Radiology Impression Brain CT 06/23/23 11:06 IMPRESSION: No acute intracranial abnormality. Chronic ischemic and atrophic changes. Electronically Signed: Bryan Weathers MD at 14:12 EDT , D/C Instructions Discharge Diet: Low fat / Low cholesterol Discharge Activity: Return to Normal Activity Weight Bearing Status: Weight bearing as tolerated Call your doctor if you observe: Fever of 101 or Higher, Shortness of breath, Dizziness, Swelling in the ankles, Chest pain and Increased palpitations (irregular heartbeat) Meaningful Use Info Meaningful Use Diagnoses (Choose all that apply): None applicable Discharge Plan Admission Admit Date/Time: 06/22/23 21:42 Primary Reason for Your Visit: BPPV Attending Provider: Sandy Robledo Primary Care Provider: Charlotte Sharif Consulting Providers: Daljit Guillen Instructions Patient Instructions: BPPV Discharge Orders/Prescriptions Prescriptions: New meclizine 25 mg Tablet 25 mg PO Q8H PRN PRN (Reason: Dizziness) Qty: 30 0RF Continued coenzyme Q10 [Co Q-10] 100 mg capsule 100 mg PO DAILY loperamide [Anti-Diarrheal (loperamide)] 2 mg tablet 2 mg PO Q1-4H PRN (Reason: Diarrhea) omeprazole 20 MG capsule 20 mg PO DAILY Patient Comments: acid reflux simvastatin 20 mg tablet 40 mg PO QHS Patient Comments: cholesterol Thera 1 EACH tablet 1 ea PO DAILY oxybutynin chloride [Ditropan XL] 10 mg Tablet Extended Release 24hr 10 mg PO DAILY Unisom (doxylamine) 25 mg Tablet 25 mg PO QHS PRN (Reason: Sleep) cholecalciferol (vitamin D3) [Vitamin D3] 50 mcg (2,000 unit) Tablet 50 mcg PO DAILY krill oil 500 mg Capsule 500 mg PO DAILY PreserVision AREDS-2 250-90-40-1 mg Capsule 1 tab PO BID Hair, Skin, Nails with Biotin 7.5-7.5-1,250 mg-unit-mcg Tablet,Chewable 2 tab PO DAILY vitamin K21-bhpsp acid 1,000-400 mcg Lozenge 1 lonnie SUBLINGUAL DAILY buooxusf-pbmk-vzygv-oreg-capry 100 mg-150 mg- 50 mg-150 mg Capsule 2 cap PO DAILY pramipexole 0.125 mg tablet 0.5 mg PO QHS Patient Comments: TAKE 1 TABLET BY MOUTH ONCE DAILY AT BEDTIME. MAY INCREASE BY 1 TABLET EVERY 3 NIGHTS UP TO A MAXIMUM OF 4 TABLETS AT BEDTIME pantoprazole [Protonix] 40 mg tablet,delayed release (DR/EC) 40 mg PO BID Qty: 180 1RF Rx Instructions: Take two times a day for eight weeks then once a day for eight weeks. colestipol [Colestid] 1 gram tablet 1 g PO BID PRN (Reason: diarrhea) Qty: 180 3RF Referrals / Follow Up: Charlotte Sharif MD [Primary Care Provider] - Within 2 Weeks Disposition Disposition (needs filled in before D/C Order can be placed): Home, Self Care Charges/Coding Visit Charges Inpatient E&M: 05277 Disch Hosp >30min
[2023-06-23 15:00] VITALS: BP 118/60; PULSE 62; RESP 18; TEMP 36.6; O2SAT 98
== END 2023-06-23 15:29 | disposition home or self-care (01) ==
LOC: ED 22:12 → MS3 22:20
PROVIDERS: Admitting Provider Internal Medicine; Emergency Provider Emergency Medicine; PCP Family Medicine; Visit Provider Student in an Organized Health Care Education/Training Program
DX: H81.12 Benign paroxysmal vertigo, left ear (principal); R53.1 Weakness; E78.00 Pure hypercholesterolemia, unspecified; Z87.891 Personal history of nicotine dependence; R53.81 Other malaise; K21.9 Gastro-esophageal reflux disease without esophagitis; Z79.899 Other long term (current) drug therapy
CPT/HCPCS: 36415; 70450; 80053; 83735; 84100; 84443; 85025; 96372; 97161; 97165; 99221; 99283; J7030; A4216; G0378

== ENCOUNTER → 2023-12-03 | Outpatient (CLI) | payer MEDICARE, OTHER, SELFPAY ==
[2023-12-03 15:21] LABS: Absolute Lymphocyte Count 15.17 X10^3/uL (0.83-4.51); Absolute Neutrophil Count 3.9 X10^3/uL (2.0-7.7); Basophil# 0.05 X10^3/uL; Basophil% 0.3 % (0-1); Eosinophil# 0.16 X10^3/uL; Eosinophils% 0.8 % (0-5); Hematocrit 42.8 % (37-47); Lymphocyte # 15.17 X10^3/ul (0.83-4.51); Mean Corp Hgb Conc 30.4 g/dL (32-36); Mean Corpuscular Volume 95.5 fL (81-99); Mean Platelet Vol. 12.7 fl (6.2-12.0); Monocyte# 0.41 X10^3/uL; Monocyte% 2.1 % (0-10); NRBC Flagged by Analyzer 0 % (0-5); Neutrophil # 3.89 X10^3/uL (2.7-7.7); Neutrophil % 19.6 % (47-70); POSITIVE DIFFERENTIAL YES; Platelet Count 239 K/mm3 (150-450); RBC Distribution Width CV 15.2 % (11.6-14.6); RBC Distribution Width SD 53.9 fl (35.1-43.9); Red Blood Count 4.48 M/mm3 (4.2-5.4); White Blood Count 19.7 K/mm3 (4.4-11.0)
[2023-12-03 15:46] LABS: Differential Indicated SCAN CRITERIA MET
[2023-12-03 16:09] LABS: ALB/GLOB Ratio 0.9 RATIO (0.9-2.4); AST(SGOT) 26 U/L (15-37); Alanine Aminotransfer ALT/SGPT 21 U/L (13-56); Albumin, Serum 4.2 g/dL (3.2-5.0); Alkaline Phosphatase 80 U/L (45-117); Anion Gap 5 (5-15); BUN 23 mg/dL (7-18); BUN/Creat Ratio 28.4 RATIO (10-20); Calcium,Total 9.7 mg/dL (8.5-10.1); Chloride 104 mmol/L (98-107); Cholesterol 167 mg/dL (200); Creatinine, Serum 0.81 mg/dL (0.55-1.02); EST Glomerular Filtration Rate 72 mL/min (>60); Est Glom Filt Rate - Afr Amer 87 mL/min (>60); Globulin 4.8 g/dL (2.2-4.2); Glucose 74 mg/dL (74-106); High Density Lipoprotein 83 mg/dL; Potassium 4.1 mmol/L (3.5-5.1); Sodium Level 138 mmol/L (136-145); Triglycerides 86 mg/dL; Very Low Density Lipoprotein 17 mg/dL (5-40)
[2023-12-03 16:18] LABS: Differential Comment SCANNED; Smudge Cells RARE
== END | disposition home or self-care (01) ==
LOC: BFHLAB 13:52
PROVIDERS: PCP Family Medicine; Referring Provider Family Medicine; Visit Provider Family Medicine
DX: Z00.00 Encounter for general adult medical examination without abnormal findings (principal); E78.5 Hyperlipidemia, unspecified
CPT/HCPCS: 36415; 80053; 80061; 85025

== ENCOUNTER 2024-01-27 09:30 | Outpatient (RCR) | payer MEDICARE, OTHER, SELFPAY ==
--- NOTE | 2023-12-23 15:52 | HP.PTEVAL ---
Patient's Visit Information Visit Information Visit Information: CORINNE HANKS is a 83 year old F referred to Physical Therapy by Dr. Charlotte Sharif MD with a diagnosis of Vestibular Rehab. Date of Evaluation: 12/23/23 Physical Therapist: JENA Jarquin Visit Plan Frequency: 2x /Week Duration: 3 Weeks Plan: 2X/ week for 3 weeks for positional repositioning and test of balance and gait if needed Subjective Subjective: Pt woke up June 21 and feeling like she was falling out of bed. She was so dizzy and sick to her stomach. She thought she was getting the flu or something. She spent the whole day on the couch. Her daughter took her to the ER and told her that she had vertigo. The ER Dr did the Eply a few times and then they suggested that she spent the night. She felt a little better. She thought that it would go away for a few days. She then spoke with a few friends that had people they knew with it. The Sx have not gone away. She just has learned to live with it. She sits still if she does get dizzy. She was at her office visit with Dr Trujillo and she wanted her to go to therapy. She gets dizzy getting out of bed in the morning (turning to her L side). She has tired to turn to her R side and would occ get dizzy. She sleeps on her back with 3 pillows. Any quick turn to the L will make her dizzy. When she gets dizzy it generally lasts one minute or less. She has arthritis in her neck. Objective Objective: + L Hallpike for slightly delayed torsional nystagmus that lasted 1 min 30 seconds. Went right into L EPLY. Pt felt weird in the head when she sat up. Re tested L Hallpike and was still positive for delayed nystagmus... question horizontal vs torsional and the nystagmus did not stop at 1 minute until therapist moved head to looking straight up at the ceiling. + Roll test on the L When roll head to the R was positive for horizontal nystagmus at a delayed slow beat and to the L delayed faster pace nystagmus that lasted a long time until slowed down. Repeated Roll test X 4 more times and then ended on the R side and the rolled pt to the right prone for 2 minutes. Balance/Special Test Scores Dizziness Score: 20 Goals Goal 1:: I HEP Goal Time Frame: 2-4 Weeks Goal 2:: Abolish dizziness when roll to her L side Goal Time Frame: 2-4 Weeks Goal 3:: Test balance and gait if needed. Goal Time Frame: 2-4 Weeks Rehabilitation Potential Rehabilitation Potential: Good Anticipated Interventions Patient/Client Instruction: Educate patient on: Condition and Plan of Care For the Purpose of:: To decrease pain, To increase ROM, To improve nutrient delivery to tissue, To improve muscle performance and motor function, To improve ability to perform ADL's, To increase tolerance to activity/condition/position, To improve performance and independence with ADL's, To improve gait and locomotor functions, To improve health of tissue, To decrease soft tissue restriction, To improve balance and To improve safety with gait Therapeutic Exercise to Include: Strength training, Endurance training, Balance training, Postural training, Flexibilty training, Gait and locomotor training, Neuromotor development, Passive ROM and Active ROM For the Purpose of:: To improve gait and locomotor functions, To improve balance and To improve safety with gait Functional Training to Include: Gait training For the Purpose of:: To improve gait and locomotor functions and To improve safety with gait Manual Therapy Techniques to Include: Other Comment: positional vertigo tx For the Purpose of:: To improve gait and locomotor functions Text: Thank you for the opportunity to evaluate your patient. For Medicare and Medicare HMO plans, please review the plan of care and approve it. It will need to be FAXED BACK to us at [phone] for Medicare purposes. For Medicare only, by signing this I certify the plan of care. Please let me know if there are questions or concerns regarding this plan of care. Physician Signature: Date:
--- NOTE | 2024-01-27 10:03 | HP.PTDCSUM ---
Discharge Summary D/C summary: It has been my pleasure to treat CORINNE HANKS referred by Dr. Charlotte Sharif MD, with the diagnosis of Vestibular Rehab for a total of 5 visit(s). Discharge Date: 01/27/24 Please see the following information for a summary of their discharge status. Subjective Subjective: Pt reports that she has been good. She will occ get a quick bought of dizziness when she bends down and stands back up but does not happen all the time Overall Improvement % Improvement: 90 Objective Objective/Function: -Hallpike to the L FGA: 27 Was able to bed FW and stand back up with no dizziness Goals Goal 1:: I HEP Goal Progress: Goal Met Goal 2:: Abolish dizziness when roll to her L side Goal Progress: Goal Met Goal 3:: Test balance and gait if needed. Goal Progress: Goal Met Plan Plan: DC PT Pt will call if sx return D/C Information Discharge Comments: DC PT d/c sentence: If there are questions or concerns regarding this patient's physical therapy, please feel free to call me at [phone]. Thank you for the referral of this patient. Sincerely, Jeannette Kang, MPT Balance/Gait/Functional tests Balance/Special Test Scores Functional Gait Assessment Score: 27 % Disability: 10.0000 Dizziness Score: 12 Improvement % Improvement: 90
== END 2024-01-27 19:00 | disposition home or self-care (01) ==
LOC: PT 09:30
PROVIDERS: PCP Family Medicine; Referring Provider Family Medicine; Visit Provider Family Medicine
DX: H81.10 Benign paroxysmal vertigo, unspecified ear (principal)
CPT/HCPCS: 97161; 97530

== ENCOUNTER → 2024-01-31 | Outpatient (CLI) | payer MEDICARE, OTHER, SELFPAY ==
--- NOTE | 2024-01-31 10:14 | BI_ITS ---
MAMMOGRAPHY - BILATERAL SCREENING REASON FOR EXAM: Female, 84 years old. Routine annual screening examination. PERTINENT HISTORY: Sister with breast cancer. TECHNIQUE: Digital bilateral breast martin (3D mammographic acquisition) in the CC and MLO projections. 2-D mediolateral oblique (MLO) and craniocaudad (CC) views of both breasts were obtained. CAD: Full Field Digital Mammography with Computer Added Detection was performed. COMPARISON: Comparison is made with prior study dated January 29, 2023 and December 19, 2021. FINDINGS: Breast Composition: There are scattered areas of fibroglandular density. There are no dominant masses or suspicious calcifications. Stable benign-appearing bilateral axillary lymph nodes. No other significant abnormalities are identified. There has been no significant change since the prior study. BI/SCRN MAMM (CAD)W/MARTIN BILAT IMPRESSION: Stable bilateral screening mammogram. Yearly follow-up mammogram recommended. (A) ASSESSMENT CATEGORY: BIRADS Category 2: Benign. A letter regarding these results will be sent to the patient by the facility within 30 days. Approximately 10% of breast cancers are not detected by mammography. A normal mammogram should not delay biopsy of a clinically suspicious abnormality. [id number] Electronically Signed: Marlon Marmolejo MD at 11:08 EDT ,
== END | disposition home or self-care (01) ==
LOC: OPBI 10:11
PROVIDERS: PCP Family Medicine; Referring Provider Family Medicine; Visit Provider Family Medicine
DX: Z12.31 Encounter for screening mammogram for malignant neoplasm of breast (principal)
CPT/HCPCS: 77063; 77067

== ENCOUNTER 2024-02-19 11:21 | Day surgery (SDC) | payer MEDICARE, OTHER, SELFPAY ==
[2024-02-19] VITALS (9 sets, daily range): BP systolic 82–164; BP diastolic 49–75; PULSE 58–74; RESP 14–20; TEMP 36.4–36.8; O2SAT 96–100; BMI 24.8
--- NOTE | 2024-02-19 12:12 | PCM.PRE.AN2 ---
ASA Classification* ASA Classification ASA Classification: 2 Assessment & Plan Anesthesia* Anesthesia Assessment Anesthesia Assessment: Discussed sedation and/or anesthesia options, risks, benefits, and alternatives with patient/parents/legal guardian/POA. Questions invited. The patient/parents/legal guardian/POA seems to understand and agrees to proceed with anesthesia plan. Reviewed the physical assessment, medical history, allergy history and patient home medications list prior to surgery/procedure/anesthetic and documented any changes. Performed airway and anesthesia risk assessments. Anesthesia Type Anesthesia Type: MAC Anesthesia Focused Assessment* Temperature: 97.6 F Pulse Rate: 58 Blood Pressure: 164/75 Respiratory Rate: 20 Pulse Ox: 100 Airway Assessment Mouth opens: >3 cm Mallampati Score: II Focused Labs Anesthesia Preop lab: CBC WBC 19.7 K/mm3 (4.4-11.0) H 12/03/23 13:52 RBC 4.48 M/mm3 (4.2-5.4) 12/03/23 13:52 Hgb 13.0 g/dL (12.0-15.0) 12/03/23 13:52 Hct 42.8 % (37-47) 12/03/23 13:52 Plt Count 239 K/mm3 (150-450) 12/03/23 13:52 CHEMISTRY Potassium 4.1 mmol/L (3.5-5.1) 12/03/23 13:52 Sodium 138 mmol/L (136-145) 12/03/23 13:52 Magnesium 2.2 mg/dL (1.6-2.6) 06/23/23 06:13 Phosphorus 3.6 mg/dL (2.5-4.9) 06/23/23 06:13 BUN 23 mg/dL (7-18) H 12/03/23 13:52 Creatinine 0.81 mg/dL (0.55-1.02) 12/03/23 13:52 Glucose 74 mg/dL (74-106) 12/03/23 13:52 TSH 1.24 uIU/mL (0.358-3.74) 06/23/23 06:13 COAG Pre-Assessment Diagnosis/Proposed Procedure Planned Operative Procedure(s): COLONOSCOPY Anesthesia History Anesthesia History - apartment leasing consultant: Anesthesia History - apartment leasing consultant Hx Hospitalization Yes: [facility], 202302/17/24 14:12 Any Problems With Anesthesia No 02/17/24 14:12 Cholinesterase deficiency No 02/17/24 14:12 You/Your Family Experience No 02/17/24 14:12 fever (hyperthermia) with Relationship Recent Exposure to Contagious No 02/19/24 11:49 Disease Does patient have nerve No 02/17/24 14:12 stimulator Patient instructed to have device shut off --Does patient have Pacemaker No 02/19/24 11:49 or ICD? When Was Last Pacemaker Check QUESTION #4 FULL TEXT: You/Your Family Experience fever (hyperthermia) with Anesthesia Last Oral Intake Last Oral intake: Last Oral Intake NPO since 08:00 02/19/24 11:49 Meds taken in AM with sips of No 02/19/24 11:49 water? Meds patient instructed to take am of surgery PONV PONV - apartment leasing consultant: PONV - apartment leasing consultant Female Yes 02/17/24 14:12 HX of Motion Sickness Yes 02/17/24 14:12 HX of N/V After Surgery No 02/17/24 14:12 Non-Smoker Yes 02/17/24 14:12 Duration of Surgery greater No 02/17/24 14:12 than 60 minutes Number of Risk Factors 3 02/17/24 14:12 PONV Score Moderate Risk 02/17/24 14:12 Height & Weight Height & Weight: Anesthesia: Height & Weight Height 4 ft 10 in 02/19/24 11:49 Weight: 54 kg 02/19/24 11:49 Body Mass Index (BMI) 24.8 02/19/24 11:49 Respiratory Assessment Respiratory Assessment - apartment leasing consultant: Respiratory Tract Infection Hx - apartment leasing consultant Hx Respiratory Tract Infection No 02/17/24 14:12 STOP Sleep Apnea STOP Sleep Apnea - apartment leasing consultant: STOP Sleep Apnea - apartment leasing consultant Hx Hypertension No 02/17/24 14:12 Hx Sleep Apnea No 02/17/24 14:12 CPAP BIPAP Do you snore loudly (louder No 02/17/24 14:12 than talking or can be heard Do you often feel tired/ No 02/17/24 14:12 fatigued/ sleepy during daytime? Has anyone observed you stop No 02/17/24 14:12 breathing during sleep? STOP Results Negative 02/17/24 14:12 QUESTION #5 FULL TEXT : Do you snore loudly (louder than talking or can be heard through closed doors)? 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 Specify any problems Hx of Preganancy in last 3 No 02/17/24 14:12 Months Nurse Filling Out Transfusion [id number] 02/17/24 14:12 & Questions: Date: 02/17/24 02/17/24 14:12 Time: 14:14 02/17/24 14:12 Patient unable to answer at this time (ie. confused, unrespo /Reproduction History /Reproductive History - apartment leasing consultant: /Reproductive Hx- apartment leasing consultant Hx Now No 02/17/24 14:12 Gestational Age (in weeks): EDC: Hx Hx Para Hx Section SAB No 02/17/24 14:12 PFSH Medical History History of leukemia Restless legs Microscopic colitis Irritable bowel syndrome with diarrhea GERD (gastroesophageal reflux disease) Hiatal hernia Small bowel obstruction Frequent headaches Wears hearing aid Wears glasses Cancer Alcohol use Bladder disease High cholesterol Injury of head and neck Former smoker History of pain when walking History of edema History of irregular heartbeat Cardiology follow-up encounter History of stress test Family history of colon cancer in mother GERD without esophagitis Diarrhea Hemorrhoids Acid reflux IBS (irritable bowel syndrome) Arthritis History of back problems Chronic lymphatic leukemia Home Medications ?Medication ?Instructions ?Recorded ?Last Taken ?Type omeprazole 20 mg capsule,delayed 20 mg PO DAILY 11/04/13 06/21/23 06:00 History release coenzyme Q10 100 mg capsule (Co 100 mg PO DAILY 07/10/18 02/17/24 History Q-10) loperamide 2 mg tablet 2 mg PO Q1-4H PRN Diarrhea 07/10/18 Unknown History (Anti-Diarrheal (loperamide)) simvastatin 20 mg tablet 40 mg PO QHS 07/10/18 02/17/24 History therapeutic multivitamin (Thera 1 ea PO DAILY 07/22/18 06/21/23 09:00 History tablet) ascorbic acid 7.5 mg-vit E 7.5 2 tab PO DAILY 02/22/21 02/17/24 History unit-biotin 1,250 mcg chewable tablet (Hair,Skin,Nails with Biotin) cholecalciferol (vitamin D3) 50 50 mcg PO DAILY 02/22/21 02/17/24 History mcg (2,000 unit) tablet (Vitamin D3) doxylamine succinate 25 mg tablet 25 mg PO QHS PRN Sleep 02/22/21 Unknown History (Unisom (doxylamine)) oxybutynin chloride 10 mg 10 mg PO DAILY 02/22/21 02/19/24 History tablet,extended release 24 hr (Ditropan XL) turmeric 100 mg-jayleen 150 2 cap PO DAILY 02/22/21 02/17/24 History mg-olive 50 mg-oreg 150 mg-capryl capsule vit C 250 mg-vit E 90 mg-zinc 40 1 tab PO BID 02/22/21 02/17/24 History mg-copper 1 pb-ixciyr-pxendw capsule (PreserVision AREDS-2) vitamin B12 1,000 mcg-folic acid 1 lonnie sublingual DAILY 02/22/21 02/17/24 History 400 mcg sublingual lozenge pramipexole 0.125 mg tablet 0.5 mg PO QHS restless legs 08/30/21 02/18/24 History colestipol 1 gram tablet (Colestid) 1 g PO BID PRN diarrhea #180 tabs 01/22/23 Unknown Rx meclizine 25 mg tablet 25 mg PO Q8H PRN PRN Dizziness #30 06/23/23 02/16/24 Rx tabs Allergy/AdvReac Type Severity Reaction Status Date / Time aspirin (ASA) AdvReac NEVER Verified 02/19/24 11:46 TAKES EMPTY STOMACH codeine AdvReac Nausea Verified 02/19/24 11:46 Family History Mother Arthritis Colon cancer Sister Breast cancer Surgical History History of surgical removal of skin lesion H/O total shoulder replacement Hx of hemorrhoidectomy History of esophagogastroduodenoscopy (EGD) Hx of colonoscopy Hx of appendectomy Hx of resection of small bowel history leftpartial knee replacement History of laparoscopic cholecystectomy history left vein stripping History of bilateral carpal tunnel release History of total abdominal hysterectomy and bilateral salpingo-oophorectomy History of tonsillectomy and adenoidectomy History of Social History Smoking Status: Former smoker alcohol intake: current substance use type: does not use Review of Systems (Anesthesia) ROS Narrative System reviewed and no additional complaints, except as documented.
--- NOTE | 2024-02-19 12:30 | COLBX_PTH ---
PATIENT: CORINNE HANKS LOC: EN U#:[id number] AGE/SX: 84/F ROOM: RE02/19/[address]: Dr. Dayton Herrera DO : 1940 BED: DIS: 02/19/2024 SPEC #: [id number] RECD: 02/20/24 07:45 STATUS: VINOD REQ #: [id number] RAUL: 02/19/24 12:[address]: Dayton Herrera DEPT: SURGICAL PATHOLOGY RECD BY: Lacie Kumari ENTERED: 02/20/24 09:38 SP TYPE: COLON BX OTHR DR: Dr. Charlotte Sharif MD Tissues: Cecum, NOS Procedures: Surgery Specimen Level IV HEADER OPERATION: Colonoscopy with biopsy PRE-OP DIAGNOSIS: Gastritis, esophagitis, GERD, irritable bowel syndrome, family history of colon cancer TISSUE SUBMITTED: Cecum polyp biopsy MICROSCOPIC DIAGNOSIS Cecal polyp, biopsy: Tubular adenoma. AM.mr 02/21/2024 MICROSCOPIC DESCRIPTION Slides are reviewed. GROSS DESCRIPTION Received in fixative is one container labeled with the patient's name and designated Cecum polyp biopsy. The specimen consists of two irregular fragments of light danielle soft tissue that in aggregate measure 0.4 x 0.4 x 0.1 cm. The specimen is totally submitted in one cassette. 02/20/2024 TC:5 CPT:21096
--- NOTE | 2024-02-19 12:46 | PCM.HP.BLA ---
History and Physical Date of Admission: 02/19/24 CORINNE HANKS, is a 83 F who presents to the office today for follow up. Last Office Visit 09.25.21: Dr. Herrera saw bile on EGD, gastritis on biopsy, negative for H. pylori, negative for Blackman's. She is taking 1 month of sucralfate. She is taking pantoprazole 40 mg twice daily x2 months, she will then taper down to pantoprazole 40 mg every morning, she will then resume her normal omeprazole. She has been very pleased with the addition of colestipol for IBS-diarrhea. She takes it once or twice a day as needed and it has been very effective. She had established with us in July 2021 with epigastric pain that had begun approximately 6 weeks prior. She was already on omeprazole 40 mg daily for GERD. She has a history of hiatal hernia. Her epigastric pain had almost completely resolved by changing to smaller more frequent meals. By the time she had the EGD the epigastric pain had completely resolved. No prior history of Blackman's. She did have a known history of microscopic colitis that had been diagnosed 3 years prior on colonoscopy. Budesonide was too expensive so she did not take it. She was treated with a different medication which was effective but diarrhea returned when she stopped it. She was using loperamide as needed, but she was having to rely on Depends. Her mother had colon cancer. OV 4.12.24 pt reports similar symptoms to last visit. She is still having some epigastric pain and bloating. Pt states her bowel movements fluctuate between several episodes of urgent diarrhea a day to one formed stool a day. pt states that she recently starting starting taking Carafate and takes omeprazole. OV 10..24 pt reports continued diarrhea, but that she knows now what she can and can't eat. Pt states that it is time for her colonoscopy and reports that her mother of colon cancer. ROS Const Constitutional: Positive for weight change (weight loss); No fatigue or fever(s) ENT ENT: No difficulty swallowing Gastro GI: Positive for diarrhea; No abdominal pain, belching, bloating, change in bowel habits, change in stool character, coffee ground emesis, constipation, cramping, heartburn, difficulty swallowing, feeling full early, excessive flatus, incontinent of stools, Vomiting blood/hematemesis, Blood in stool, loose stools, Black,tarry stools, nausea/dyspepsia, pain with swallowing, vomiting or other Musc Musculoskeletal: Positive for back pain, Arthritis and restless legs; No joint pain Skin Skin: No yellowing of the eye or itchy eyes Neuro Neurology: Positive for restless legs and other (vertigo) Psych Psychiatric: No anxiety and No depression Endo Endocrine: Positive for weight change (weight loss); No fatigue Aller/Imm Allergy/Immunologic: No itchy eyes Tarik/Lymp Hematologic/Lymphatic: No easy bleeding or easy bruising Exam Const General: cooperative, healthy appearing and well developed Neuro General: patient alert and patient oriented x3 Assessment and Plan Assessment and Plan (1) Gastritis: Status: Acute Plan: We reviewed EGD findings and biopsy results. Negative for Blackman's and H. pylori. Complete the 1 month course of sucralfate. No repeat EGD needed. (2) Esophagitis: Status: Acute Plan: Complete the 2 months of twice daily dosing of pantoprazole 40 mg, then 2 months of once daily dosing of pantoprazole 40 mg, then she can resume her omeprazole 40 mg daily (3) GERD (gastroesophageal reflux disease): Status: Acute Plan: As above (4) Irritable bowel syndrome with diarrhea: Status: Acute Plan: She can continue colestipol 1 g once or twice a day as needed. She does have some breakthrough symptoms which she gets cramping and a little bit abdominal pain. I would like to give her Xifaxan therapy for approximately 7 to 10 days depending on what her insurance approves. If that is not obtainable due to cost we will give her budesonide 6 mg a day. (5) Family history of colon cancer: Status: Acute Plan: She has a strong family history of colon cancer from 2 first-degree relatives. She also has a personal history of polyps. We will perform a surveillance colonoscopy. She was explained alternatives, risk, benefits include not withstanding bleeding, infection, sepsis, perforation, need for return to . She will have an ASA of 3. Coding Level of Care Code Off vis,est,level 4 I have examined the patient and the H&P has been reviewed. There are no clinical changes since date of exam.
--- NOTE | 2024-02-19 13:26 | PCM.POST.ANE ---
Anesthesia: Postop Eval I Current Vital Signs Temperature: 98.2 F Pulse Rate: 71 Blood Pressure: 89/58 Respiratory Rate: 16 Pulse Ox: 98 Oxygen Delivery Method: Room Air Assessment Airway patent: Yes Spontaneous unlabored respirations: Yes Mental status: Asleep nausea: No Vomiting: No Anesthesia Complication: No Fluid Hydration Crystalloid volume administer (ml): 40 Total IV fluid infused: 40 Progress Note Anesthesia document: Postop Eval 1 completed: Yes
--- NOTE | 2024-02-19 13:27 | OP.COLON_ITS ---
Patient Name: Cecelia Knight Procedure Date: 02/19/2024 12:52 PM Date of : 1940 Age: 84 Procedure: Colonoscopy Indications: Screening for colorectal malignant neoplasm Providers: Dayton Herrera DO Referring MD: Charlotte Sharif Medicines: Monitored Anesthesia Care Patient Profile: This is an 84 year old female. Refer to note in patient chart for documentation of history and physical. Last Colonoscopy: 5 years ago. Complications: No immediate complications. Procedure: Pre-Anesthesia Assessment: - Prior to the procedure, a History and Physical was performed, and patient medications and allergies were reviewed. The patient is competent. The risks and benefits of the procedure and the sedation options and risks were discussed with the patient. All questions were answered and informed consent was obtained. Patient identification and proposed procedure were verified by the physician in the pre-procedure area. Mental Status Examination: alert and oriented. Airway Examination: normal oropharyngeal airway and neck mobility. Respiratory Examination: clear to auscultation. CV Examination: normal. Prophylactic Antibiotics: The patient does not require prophylactic antibiotics. Prior Anticoagulants: The patient has taken no anticoagulant or antiplatelet agents except for NSAID medication. ASA Grade Assessment: II - A patient with mild systemic disease. After reviewing the risks and benefits, the patient was deemed in satisfactory condition to undergo the procedure. The anesthesia plan was to use monitored anesthesia care (MAC). Immediately prior to administration of medications, the patient was re-assessed for adequacy to receive sedatives. The heart rate, respiratory rate, oxygen saturations, blood pressure, adequacy of pulmonary ventilation, and response to care were monitored throughout the procedure. The physical status of the patient was re-assessed after the procedure. After I obtained informed consent, the scope was passed under direct vision. Throughout the procedure, the patient's blood pressure, pulse, and oxygen saturations were monitored continuously. The Colonoscope was introduced through the anus and advanced to the cecum, identified by appendiceal orifice and ileocecal valve. The colonoscopy was performed without difficulty. The patient tolerated the procedure well. The quality of the bowel preparation was adequate. The ileocecal valve, appendiceal orifice, and rectum were photographed. Scope In: 1:02:19 PM Scope Withdrawal Time 0 hours 6 minutes 24 seconds Scope Out: 1:16:43 PM Total Procedure Duration Time 0 hours 14 minutes 24 seconds Findings: The perianal and digital rectal examinations were normal. A 6 mm polyp was found in the cecum. The polyp was sessile. The polyp was removed with a jumbo cold forceps. Resection and retrieval were complete. Verification of patient identification for the specimen was done. Estimated blood loss was minimal. The exam was otherwise without abnormality on direct and retroflexion views. Impression: - One 6 mm polyp in the cecum, removed with a jumbo cold forceps. Resected and retrieved. - The examination was otherwise normal on direct and retroflexion views. Recommendation: - Discharge patient to home. - Resume previous diet. - Continue present medications. - Await pathology results. - Repeat colonoscopy in 5 years for surveillance. Procedure Code(s): --- Professional --- 60961, Colonoscopy, flexible; with biopsy, single or multiple CPT copyright 2021 [employer]. All rights reserved. The codes documented in this report are preliminary and upon senior occupational therapist review may be revised to meet current compliance requirements. Dayton Herrera DO 02/19/2024 1:27:22 PM This report has been signed electronically. Number of Addenda: 0 Note Initiated On: 02/19/2024 12:52 PM
--- NOTE | 2024-02-19 13:28 | OP.CCLET_ITS ---
02/19/2024 Charlotte Sharif [place] [address] [address] Re : Colonoscopy procedure for Cecelia Knight Dear Dr. Sharif This procedure was performed on Monday, February 19, 2024. My impressions and recommendations are as follows: Impressions : - One 6 mm polyp in the cecum, removed with a jumbo cold forceps. Resected and retrieved. - The examination was otherwise normal on direct and retroflexion views. Recommendations : - Discharge patient to home. - Resume previous diet. - Continue present medications. - Await pathology results. - Repeat colonoscopy in 5 years for surveillance. My findings are described in the full procedure note, which is enclosed. If I can be of further assistance, please feel free to contact me at . Sincerely, Dayton Herrera, 02/19/2024 1:27:22 PM This report has been signed electronically.
--- NOTE | 2024-02-19 14:37 | PCM.POSTANE2 ---
Anesthesia Postop Eval I Sum Postop Eval Completion status Anesthesia document: Postop Eval 1 completed: Yes Anesthesia Postop Eval I Summary Anesthesia Postop Eval I Summary: Anesthesia Postop Eval I: Assessment Summary Airway patent Yes 02/19/24 13:27 [email or web address] Spontaneous unlabored Yes 02/19/24 13:27 [email or web address] respirations Mental status Asleep 02/19/24 13:27 [email or web address] nausea No 02/19/24 13:27 [email or web address] Vomiting No 02/19/24 13:27 [email or web address] Anesthesia Postop Eval I: Fluid Summary Crystalloid volume administer 40 02/19/24 13:27 [email or web address] (ml) Colloids volume administered ( ml) Blood Product volume administered (ml) Total IV fluid infused 40 02/19/24 13:27 [email or web address] Anesthesia Postop Eval I: Summary Notes Anesthesia Complication No 02/19/24 13:27 [email or web address] Anesthesia Complication Comment: Post-operative progress note Anesthesia: Postop Eval II Evaluation Mental status: Awake Pain Level: 0 nausea: No Vomiting: No
== END 2024-02-19 14:29 | disposition home or self-care (01) ==
LOC: EN 11:23 → AC 11:23
PROVIDERS: PCP Family Medicine; Referring Provider Family Medicine; Visit Provider Internal Medicine Gastroenterology
PROC: 0DJD8ZZ Inspection of Lower Intestinal Tract, Via Natural or Artificial Opening Endoscopic (ICD-10-PCS; CPT 45378; principal; 2024-02-19 12:25)
DX: Z12.11 Encounter for screening for malignant neoplasm of colon (principal); D12.0 Benign neoplasm of cecum; K29.70 Gastritis, unspecified, without bleeding; K21.00 Gastro-esophageal reflux disease with esophagitis, without bleeding; K58.0 Irritable bowel syndrome with diarrhea; E78.00 Pure hypercholesterolemia, unspecified; Z79.899 Other long term (current) drug therapy
CPT/HCPCS: 45380; 88305; A4216; J2405

== ENCOUNTER → 2024-05-21 | Outpatient (CLI) | payer MEDICARE, OTHER, SELFPAY ==
[2024-05-21 12:23] LABS: Absolute Lymphocyte Count 14.68 X10^3/uL (0.83-4.51); Absolute Neutrophil Count 5.5 X10^3/uL (2.0-7.7); Basophil# 0.05 X10^3/uL; Basophil% 0.2 % (0-1); Eosinophil# 0.38 X10^3/uL; Eosinophils% 1.8 % (0-5); Hematocrit 44.8 % (37-47); Hemoglobin 14.4 g/dL (12.0-15.0); Lymphocyte # 14.68 X10^3/ul (0.83-4.51); Lymphocyte % 69.5 % (19-41); Mean Corp Hgb Conc 32.1 g/dL (32-36); Mean Corpuscular Hgb 30.3 pg (27.0-32.0); Mean Corpuscular Volume 94.3 fL (81-99); Mean Platelet Vol. 11.2 fl (6.2-12.0); Monocyte# 0.45 X10^3/uL; Monocyte% 2.1 % (0-10); NRBC Flagged by Analyzer 0 % (0-5); Neutrophil # 5.51 X10^3/uL (2.7-7.7); Neutrophil % 26.2 % (47-70); POSITIVE DIFFERENTIAL YES; POSITIVE MORPHOLOGY YES; Platelet Count 298 K/mm3 (150-450); RBC Distribution Width CV 14.6 % (11.6-14.6); RBC Distribution Width SD 50.7 fl (35.1-43.9); Red Blood Count 4.75 M/mm3 (4.2-5.4); White Blood Count 21.1 K/mm3 (4.4-11.0)
[2024-05-21 12:30] LABS: Differential Indicated SCAN CRITERIA MET
[2024-05-21 12:59] LABS: ALB/GLOB Ratio 1.1 RATIO (0.9-2.4); AST(SGOT) 36 U/L (15-37); Alanine Aminotransfer ALT/SGPT 25 U/L (13-56); Albumin, Serum 4.1 g/dL (3.2-5.0); Alkaline Phosphatase 70 U/L (45-117); Anion Gap 8 (5-15); BUN 16 mg/dL (7-18); BUN/Creat Ratio 19.6 RATIO (10-20); Calcium,Total 9.9 mg/dL (8.5-10.1); Chloride 106 mmol/L (98-107); Cholesterol 204 mg/dL (200); Creatinine, Serum 0.82 mg/dL (0.55-1.02); EST Glomerular Filtration Rate 71 mL/min (>60); Est Glom Filt Rate - Afr Amer 86 mL/min (>60); Globulin 3.8 g/dL (2.2-4.2); Glucose 85 mg/dL (74-106); High Density Lipoprotein 95 mg/dL; Potassium 4.4 mmol/L (3.5-5.1); Protein, Total 7.9 g/dL (6.4-8.2); Sodium Level 139 mmol/L (136-145); Triglycerides 93 mg/dL; Very Low Density Lipoprotein 19 mg/dL (5-40)
[2024-05-21 13:16] LABS: Differential Comment SCANNED
[2024-05-21 13:17] LABS: Atypical Lymphocyte 2+ %
== END | disposition home or self-care (01) ==
LOC: BFHLAB 10:19
PROVIDERS: PCP Family Medicine; Visit Provider Family Medicine
DX: E78.5 Hyperlipidemia, unspecified (principal); C91.10 Chronic lymphocytic leukemia of B-cell type not having achieved remission
CPT/HCPCS: 36415; 80053; 80061; 85025

== ENCOUNTER 2024-12-03 10:33 | Inpatient (IN) | payer MEDICARE, OTHER, SELFPAY ==
[2024-12-03] VITALS (21 sets, daily range): BP systolic 96–156; BP diastolic 62–127; PULSE 63–160; RESP 16–26; TEMP 36.4–36.6; O2SAT 95–100; BMI 25.8; BMI 23.0
--- NOTE | 2024-12-03 10:42 | EKG12_ITS ---
Test Reason : Blood Pressure : */* mmHG Vent. Rate : 146 BPM Atrial Rate : 333 BPM P-R Int : * ms QRS Dur : 72 ms QT Int : 306 ms P-R-T Axes : * 63 -39 degrees QTcB Int : 476 ms Critical Test Result: High HR Atrial flutter with variable A-V block Nonspecific T wave abnormality Abnormal ECG Confirmed by ARANZA HANNA ([id number]), senior technical editor [facility]IS [employer]OTHERS ([id number]) on 12/08/2024 6:27:05 AM Referred By: Confirmed By: ARANZA HANNA
--- NOTE | 2024-12-03 10:42 | RAD_ITS ---
PROCEDURE: CHEST 1 VIEW (PORTABLE) 12/03/2024 REASON FOR EXAM: CHEST PAIN TECHNIQUE: Frontal view of the chest. COMPARISON: None FINDINGS: Heart size is upper normal. Central vascularity appears normal. There is no focal infiltrate or consolidation. There is no pneumothorax or effusion. Hardware is noted in the left shoulder. Aortic calcifications are visible. RAD/Chest 1 View (Portable) IMPRESSION: No acute process is identified in the chest. Reading Location: [facility]
[2024-12-03 10:50] LABS: Hematocrit 45.9 % (37-47); Hemoglobin 15.2 g/dL (12.0-15.0); Immature Granulocytes Count 0.040 X10^3/uL (0.0-0.0); Mean Corp Hgb Conc 33.1 g/dL (32-36); Mean Corpuscular Volume 94.8 fL (81-99); Mean Platelet Vol. 11.1 fl (6.2-12.0); NRBC Flagged by Analyzer 0 % (0-5); POSITIVE DIFFERENTIAL YES; POSITIVE MORPHOLOGY YES; Platelet Count 287 K/mm3 (150-450); RBC Distribution Width CV 13.6 % (11.6-14.6); RBC Distribution Width SD 48.0 fl (35.1-43.9); Red Blood Count 4.84 M/mm3 (4.2-5.4); White Blood Count 20.8 K/mm3 (4.4-11.0)
[2024-12-03 11:04] LABS: Differential Indicated SCAN CRITERIA MET
[2024-12-03] MEDS: 0.9% Normal Saline (1000mL) 1,000 ML 999 ML IV (11:27)
--- NOTE | 2024-12-03 11:32 | EX.ED.DYSGE1 ---
HPI History of Present Illness Chief Complaint: Palpitations Informant: patient Narrative Narrative: Patient is an 84-year-old female with history of colitis, chronic lymphocytic leukemia, GERD, IBS and arrhythmia presenting for atrial fibrillation and outpatient doctor's visit. Patient notes that she has been having elevated heart rates for the past 1 to 2 weeks. She notes that she checked her vital signs before last because she was getting short of breath walking up the hill to her house which is abnormal for her. Her pulse rate was high and she has had some mild palpitations. She figured she would wait till she had her doctor's visit today and there was noted to be in what appears to be new onset atrial fibrillation so she came to the emergency room. She denies any swelling of her legs. Denies any chest pain. Nuys any fever or chills. Notes that after she had a small bowel obstruction in 2010 her heart rate was irregular but she followed with cardiology and nothing more came of it. She denies any recent medication changes and that she thinks that she has been having less caffeine. She has had a mild 5 pound weight loss over the summertime which she states is typical for her because she is so active in her yard. No other complaints or concerns reported at this time. Is not on any blood thinners. Denies any black or blood in her stool. Notes that she does have frequent bowel movements but attributes that to her IBS [facility] Medical History History of leukemia Restless legs Microscopic colitis Irritable bowel syndrome with diarrhea GERD (gastroesophageal reflux disease) Hiatal hernia Small bowel obstruction Frequent headaches Wears hearing aid Wears glasses Cancer Alcohol use Bladder disease High cholesterol Injury of head and neck Former smoker History of pain when walking History of edema History of irregular heartbeat Cardiology follow-up encounter History of stress test Family history of colon cancer in mother GERD without esophagitis Diarrhea Hemorrhoids Acid reflux IBS (irritable bowel syndrome) Arthritis History of back problems Chronic lymphatic leukemia Home Medications ?Medication ?Instructions ?Recorded ?Last Taken ?Type omeprazole 20 mg capsule,delayed 20 mg PO DAILY 11/04/13 06/21/23 06:00 History release coenzyme Q10 100 mg capsule (Co 200 mg PO DAILY supplemen 07/10/18 02/17/24 History Q-10) loperamide 2 mg tablet 2 mg PO Q1-4H PRN Diarrhea 04/04/19 Unknown History (Anti-Diarrheal (loperamide)) simvastatin 20 mg tablet 40 mg PO QHS 07/10/18 02/17/24 History therapeutic multivitamin (Thera 1 ea PO DAILY 07/22/18 06/21/23 09:00 History tablet) ascorbic acid 7.5 mg-vit E 7.5 2 tab PO DAILY 02/22/21 02/17/24 History unit-biotin 1,250 mcg chewable tablet (Hair,Skin,Nails with Biotin) cholecalciferol (vitamin D3) 50 50 mcg PO DAILY 02/22/21 02/17/24 History mcg (2,000 unit) tablet (Vitamin D3) doxylamine succinate 25 mg tablet 25 mg PO QHS PRN Sleep 02/22/21 Unknown History (Unisom (doxylamine)) oxybutynin chloride 10 mg 10 mg PO DAILY 02/22/21 02/19/24 History tablet,extended release 24 hr (Ditropan XL) turmeric 100 mg-jayleen 150 2 cap PO DAILY 02/22/21 02/17/24 History mg-olive 50 mg-oreg 150 mg-capryl capsule vit C 250 mg-vit E 90 mg-zinc 40 1 tab PO BID 02/22/21 02/17/24 History mg-copper 1 py-okjheh-vnsvir capsule (PreserVision AREDS-2) vitamin B12 1,000 mcg-folic acid 1 lonnie sublingual DAILY 02/22/21 02/17/24 History 400 mcg sublingual lozenge pramipexole 0.125 mg tablet 0.75 mg PO QHS restless legs 08/30/21 02/18/24 History colestipol 1 gram tablet (Colestid) 1 g PO BID PRN diarrhea #180 tabs 01/22/23 Unknown Rx meclizine 25 mg tablet 25 mg PO Q8H PRN PRN Dizziness #30 06/23/23 02/16/24 Rx tabs prevagen 10 mg PO DAILY memory 12/03/24 Unknown History Allergy/AdvReac Type Severity Reaction Status Date / Time aspirin (ASA) AdvReac NEVER Verified 12/03/24 10:38 TAKES EMPTY STOMACH codeine AdvReac Nausea Verified 12/03/24 10:38 Family History Mother Arthritis Colon cancer Sister Breast cancer Surgical History History of surgical removal of skin lesion H/O total shoulder replacement Hx of hemorrhoidectomy History of esophagogastroduodenoscopy (EGD) Hx of colonoscopy Hx of appendectomy Hx of resection of small bowel history leftpartial knee replacement History of laparoscopic cholecystectomy history left vein stripping History of bilateral carpal tunnel release History of total abdominal hysterectomy and bilateral salpingo-oophorectomy History of tonsillectomy and adenoidectomy History of Social History household members: none Smoking Status: Former smoker alcohol intake: current substance use type: does not use ROS ROS ED Constitutional Constitutional ED: Denies chills, fever(s) or sweats Cardiovascular Cardiovascular: Reports palpitations; Denies chest pain Respiratory/Chest Respiratory/Chest: Denies cough or dyspnea Gastrointestinal Gastrointestinal: Reports other Details: Chronic frequent bowel movements/no acute change ; Denies abdominal pain, nausea or vomiting Musculoskeletal Musculoskeletal: Denies arthralgias or myalgias Neurologic Neurologic: Denies weakness Hematologic/Lymphatic Hematologic/Lymphatic: Denies easy bleeding or easy bruising EXAM Physical Exam Const Vital Signs: 12/03/24 10:34 12/03/24 10:58 12/03/24 11:35 Temperature 97.5 F L Temperature Source Oral Pulse Rate 160 H 148 H Respiratory Rate 26 H 21 H Blood Pressure 156/127 H 135/122 H Blood Pressure Mean 136 126 Pulse Ox 95 99 Oxygen Delivery Method Room Air Room Air 12/03/24 12:36 12/03/24 12:43 12/03/24 13:01 Temperature Temperature Source Pulse Rate 131 H 139 H 129 H Respiratory Rate 21 H 22 H Blood Pressure 140/106 H 140/106 H 137/101 H Blood Pressure Mean 117 117 113 Pulse Ox 97 99 Oxygen Delivery Method Room Air Room Air 12/03/24 13:15 12/03/24 13:30 12/03/24 13:45 Temperature 97.7 F L Temperature Source Pulse Rate 109 H 98 84 Respiratory Rate 16 Blood Pressure 119/94 H 116/84 H 116/93 H Blood Pressure Mean 102 94 100 Pulse Ox 100 Oxygen Delivery Method Positive well nourished and well developed General Appearance ED: well developed and NAD HEENT Reports moist mucous membranes Neck supple and no JVD Chest Wall inspection of chest normal Resp normal respiratory effort and clear to auscultation bilaterally Cardio no murmurs Rate: tachycardic Rhythm: abnormal rhythm irregularly irregular GI normal to inspection, nondistended, normoactive bowel sounds and non-tender Extremity normal to inspection General Extremety ED: Negative for edema General Extremity: Negative for edema Neuro oriented x3, CN's II-XII intact bilaterally and no sensory deficits noted Sensorium / Orientation: alert Motor Exam: strength 5/5 throughout; Negative for general weakness Psych mental status grossly normal Skin no rashes or lesions noted and no wounds MDM MDM MDM Narrative Medical decision making narrative: Patient evaluated for new onset atrial fibrillation found at PCP office. Seems that she is been having symptoms for a week or 2 now. Will obtain workup for new onset atrial fibrillation looking for underlying cause such as electrolyte derangement, thyroid abnormality or pulmonary emboli/ACS. Patient ordered IV fluids and metoprolol in the emergency room. Clinically she does not appear fluid overloaded or dehydrated. Patient does have a leukocytosis 20.8 however she has CLL and this appears chronic and baseline for her. Hemoglobin mildly elevated 15.2 which is nonspecific. D-dimer is normal at 0.43 to lower suspicion for pulmonary emboli. I do not think she requires a CTA.-See troponin 13 and then repeat 9. TSH normal at 1.91. No electrolyte derangement present. Patient given 3 boluses of 5 mg IV metoprolol with no significant improvement in her heart rate. She remains hemodynamically stable with this however. A started on a Cardizem drip with a bolus in the emergency room. Heart rate is now in the 110's. Patient admitted to hospital for further workup of new onset atrial fibrillation and rate control. Case is discussed with hospitalist for admission, Dr. Chen. Lab Data Attestation: I reviewed the patient's lab results. Labs: Laboratory Results - last 24 hr 12/03/24 12/03/24 10:40 12:53 WBC 20.8 H RBC 4.84 Hgb 15.2 H Hct 45.9 MCV 94.8 MCH 31.4 MCHC 33.1 RDW Std Deviation 48.0 H RDW Coeff of Lory 13.6 Plt Count 287 MPV 11.1 Immature Gran % (Auto) 0.200 Neut % (Auto) 30.6 L Lymph % (Auto) 66.3 H [place] % (Auto) 2.0 Eos % (Auto) 0.6 Baso % (Auto) 0.3 Absolute Neuts (auto) 6.4 Absolute Lymphs (auto) 13.82 H Nucleated RBC % 0 Atypical Lymphocytes 1+ Platelet Estimate ADEQUATE D-Dimer Quant (PE/DVT) 0.43 Sodium 139 Potassium 4.1 Chloride 102 Carbon Dioxide 23.2 Anion Gap 13 BUN 22 H Creatinine 0.92 Estim Creat Clear Calc 35.71 L Est GFR (MDRD) Non-Af 62 BUN/Creatinine Ratio 24.4 H Glucose 101 H Calcium 9.8 Magnesium 2.1 Troponin T High Sens 13 Troponin T Hi Sens 2 Hr 9 TSH 1.910 Radiography Diagnostic Testing: Clinical Impression(s) from Imaging Studies Chest X-Ray 12/03/24 10:42 IMPRESSION: No acute process is identified in the chest. [facility] Rhythm Strip Rhythm Strip: Atrial flutter Rate: 146 Ectopy: None EKG Initial EKG: Attestation: I personally reviewed and interpreted this EKG as follows: Interpretation: Atrial Flutter Comments: Atrial flutter with variable AV block at a rate of 146 bpm Normal axis Normal intervals Nonspecific T wave inversions in inferior leads with no reciprocal changes Prior EKG tracings: available for review Prior: Changed (Compared to prior EKG on 03/08/2021 patient now is in atrial flutter with RVR) Management Discussion w/another healthcare provider: Hospitalist Discharge Plan Triage Chief Complaint: Palpitations ED Provider: Kaila Yanez Dx/Rx/DC Orders Clinical Impression: Atrial fibrillation with RVR, Leukocytosis Primary Care Provider: Charlotte Sharif Disposition Disposition: Acute Care Hospital [facility]
[2024-12-03 11:40] LABS: Anion Gap 13 (5-15); BUN 22 mg/dL (4-19); BUN/Creat Ratio 24.4 RATIO (10-20); Calcium,Total 9.8 mg/dL (7.6-11.0); Carbon Dioxide 23.2 mmol/L (21.0-32.0); Chloride 102 mmol/L (98-108); Estimated Creatinine Clearance 35.71 ml/min (50-250); Glucose 101 mg/dL (70-99); Potassium 4.1 mmol/L (3.3-5.1); Troponin T High Sensitivity 13 ng/L (<=14)
[2024-12-03 11:46] LABS: D-Dimer Quantitative (DVT/PE) 0.43 FEU/ug/m (0.27-0.49)
[2024-12-03 11:59] LABS: Magnesium 2.1 mg/dL (1.5-2.2)
[2024-12-03] MEDS: Diltiazem 125 MG in Dextrose 5%-Water (100mL Bag) 100 ML IV (12:36)
[2024-12-03] MEDS: APIXABAN 5 MG TABLET PO (13:42)
[2024-12-03 13:47] LABS: Troponin T High Sens 2 HR 9 ng/L (<=14)
--- NOTE | 2024-12-03 13:47 | PCM.HP.STD ---
HPI - General General Date of Admission: 12/03/24 Date of Service: 12/03/24 Chief Complaint: New onset afib/flutter HPI Narrative CORINNE HANKS, is a 84-year-old female history of CLL, GERD, IBS, RLS presented to [facility] ED 12/03/2024 from her outpatient doctors office for A-fib. She notes that she has been having elevated heart rates over 1 to 2 weeks and was getting short of breath when walking up the hill to her house which is new for her, had some mild palpitations. At her doctor's visit today she was found to be in new onset A-fib so she came to the ED. In the ED temp 97.5, patient found to be in A-fib with RVR with initial heart rate of 160, blood pressure 156/127 and respiratory rate 26 with pulse ox 95% on room air. White blood cell count 20.8 however it is chronically elevated given her CLL, hemoglobin 15.2, platelets 287, BMP with a BUN of 22 and a creatinine of 0.92. D-dimer within normal limits, troponin within normal limits, TSH within normal limits and chest x-ray with no acute process. Patient started on diltiazem drip with rate still in the low 100s, given a dose of Eliquis but given she is still on a drip patient necessitates admission.. Hospitalist contacted for admission. Patient evaluated bedside. She reports history as above, currently not having any complaints, denying shortness of breath or chest pain, no cough, no other new acute complaints [facility] Medical History History of leukemia Restless legs Microscopic colitis Irritable bowel syndrome with diarrhea GERD (gastroesophageal reflux disease) Hiatal hernia Small bowel obstruction Frequent headaches Wears hearing aid Wears glasses Cancer Alcohol use Bladder disease High cholesterol Injury of head and neck Former smoker History of pain when walking History of edema History of irregular heartbeat Cardiology follow-up encounter History of stress test Family history of colon cancer in mother GERD without esophagitis Diarrhea Hemorrhoids Acid reflux IBS (irritable bowel syndrome) Arthritis History of back problems Chronic lymphatic leukemia Home Medications ?Medication ?Instructions ?Recorded ?Last Taken ?Type omeprazole 20 mg capsule,delayed 20 mg PO DAILY 11/04/13 06/21/23 06:00 History release coenzyme Q10 100 mg capsule (Co 100 mg PO DAILY 07/10/18 02/17/24 History Q-10) loperamide 2 mg tablet 2 mg PO Q1-4H PRN Diarrhea 07/10/18 Unknown History (Anti-Diarrheal (loperamide)) simvastatin 20 mg tablet 40 mg PO QHS 07/10/18 02/17/24 History therapeutic multivitamin (Thera 1 ea PO DAILY 07/22/18 06/21/23 09:00 History tablet) ascorbic acid 7.5 mg-vit E 7.5 2 tab PO DAILY 02/22/21 02/17/24 History unit-biotin 1,250 mcg chewable tablet (Hair,Skin,Nails with Biotin) cholecalciferol (vitamin D3) 50 50 mcg PO DAILY 02/22/21 02/17/24 History mcg (2,000 unit) tablet (Vitamin D3) doxylamine succinate 25 mg tablet 25 mg PO QHS PRN Sleep 02/22/21 Unknown History (Unisom (doxylamine)) oxybutynin chloride 10 mg 10 mg PO DAILY 02/22/21 02/19/24 History tablet,extended release 24 hr (Ditropan XL) turmeric 100 mg-jayleen 150 2 cap PO DAILY 02/22/21 02/17/24 History mg-olive 50 mg-oreg 150 mg-capryl capsule vit C 250 mg-vit E 90 mg-zinc 40 1 tab PO BID 02/22/21 02/17/24 History mg-copper 1 [id number]-vfgvhm-aucarc capsule (PreserVision AREDS-2) vitamin B12 1,000 mcg-folic acid 1 lonnie sublingual DAILY 02/22/21 02/17/24 History 400 mcg sublingual lozenge pramipexole 0.125 mg tablet 0.5 mg PO QHS restless legs 08/30/21 02/18/24 History colestipol 1 gram tablet (Colestid) 1 g PO BID PRN diarrhea #180 tabs 01/22/23 Unknown Rx meclizine 25 mg tablet 25 mg PO Q8H PRN PRN Dizziness #30 06/23/23 02/16/24 Rx tabs Allergy/AdvReac Type Severity Reaction Status Date / Time aspirin (ASA) AdvReac NEVER Verified 12/03/24 10:38 TAKES EMPTY STOMACH codeine AdvReac Nausea Verified 12/03/24 10:38 Family History Mother Arthritis Colon cancer Sister Breast cancer Surgical History History of surgical removal of skin lesion H/O total shoulder replacement Hx of hemorrhoidectomy History of esophagogastroduodenoscopy (EGD) Hx of colonoscopy Hx of appendectomy Hx of resection of small bowel history leftpartial knee replacement History of laparoscopic cholecystectomy history left vein stripping History of bilateral carpal tunnel release History of total abdominal hysterectomy and bilateral salpingo-oophorectomy History of tonsillectomy and adenoidectomy History of Social History household members: none Smoking Status: Former smoker alcohol intake: current substance use type: does not use ROS ROS Narrative General: Denies fever/chills HENT: Denies headache, denies stuffy nose, denies sore throat EYES: Denies changes in vision Resp: Denies cough, denies shortness of breath Cardiac: Denies chest pain GI: Denies abdominal pain, denies changes in bowel, denies nausea/vomiting : Denies changes in urination Extremity: Denies swelling MSK: Denies weakness Neuro: Denies any numbness/tingling Heme: Denies any bleeding or bruising Skin: Denies rashes Psychiatric: No complaints voiced Vital Signs Vital Signs Vital Signs: 12/03/24 10:34 12/03/24 10:58 12/03/24 11:35 Temperature 97.5 F L Temperature Source Oral Pulse Rate 160 H 148 H Respiratory Rate 26 H 21 H Blood Pressure 156/127 H 135/122 H Blood Pressure Mean 136 126 Pulse Ox 95 99 Oxygen Delivery Method Room Air Room Air 12/03/24 12:36 12/03/24 12:43 12/03/24 13:01 Temperature Temperature Source Pulse Rate 131 H 139 H 129 H Respiratory Rate 21 H 22 H Blood Pressure 140/106 H 140/106 H 137/101 H Blood Pressure Mean 117 117 113 Pulse Ox 97 99 Oxygen Delivery Method Room Air Room Air 12/03/24 13:15 12/03/24 13:30 12/03/24 13:45 Temperature 97.7 F L Temperature Source Pulse Rate 109 H 98 84 Respiratory Rate 16 Blood Pressure 119/94 H 116/84 H 116/93 H Blood Pressure Mean 102 94 100 Pulse Ox 100 Oxygen Delivery Method Weight Weight: 56 kg Body Mass Index (BMI) 25.8 Physical Exam Narrative General: Alert, oriented, no apparent distress HEENT: Atraumatic, normocephalic Eyes: Anicteric, normal conjunctiva, extraocular movements grossly intact Neck: Supple Respiratory: Clear to auscultation bilaterally, normal respiratory effort Cardiovascular: Intermittent low-grade tachycardia, irregularly irregular GI: Soft, nontender, nondistended Extremities: No edema Musculoskeletal: Moving all extremities Neuro: No overt focal neurological deficits Skin: No rashes appreciated Psych: Cooperative Results Lab / Micro Data 12/03/24 10:40 12/03/24 10:40 Labs: Laboratory Results - last 24 hr 12/03/24 10:40: WBC 20.8 H, RBC 4.84, Hgb 15.2 H, Hct 45.9, MCV 94.8, MCH 31.4, MCHC 33.1, RDW Std Deviation 48.0 H, RDW Coeff of Lory 13.6, Plt Count 287, MPV 11.1, Immature Gran % (Auto) 0.200, Neut % (Auto) 30.6 L, Lymph % (Auto) 66.3 H, [place] % (Auto) 2.0, Eos % (Auto) 0.6, Baso % (Auto) 0.3, Absolute Neuts (auto) 6.4, Absolute Lymphs (auto) 13.82 H, Nucleated RBC % 0, Atypical Lymphocytes 1+, Platelet Estimate ADEQUATE, D-Dimer Quant (PE/DVT) 0.43, Sodium 139, Potassium 4.1, Chloride 102, Carbon Dioxide 23.2, Anion Gap 13, BUN 22 H, Creatinine 0.92, Estim Creat Clear Calc 35.71 L, Est GFR (MDRD) Non-Af 62, BUN/Creatinine Ratio 24.4 H, Glucose 101 H, Calcium 9.8, Magnesium 2.1, Troponin T High Sens 13, TSH 1.910 Rhythm Strip Rhythm Strip: Atrial flutter Rate: 146 Ectopy: None Imaging Radiology Impression Chest X-Ray 12/03/24 10:42 IMPRESSION: No acute process is identified in the chest. [facility] Assessment & Plan Assessment/Plan (1) Atrial fibrillation with RVR: PLAN: Plan # New onset Afib/flutter w/ RVR -Admit to telemetry -Initial rate in ED: 160 -EKG: A flutter with variable AV block and rate of 146 -Rate control: Patient started on diltiazem drip, heart rate is improving to the low 100s and at times dipping into 90s, will start scheduled beta-miranda with goal of discontinuing drip. Will start metoprolol 12.5 mg p.o. x 1 now with plan for another 12.5 mg tonight (total 25 mg of metoprolol tartrate) followed by 25 mg twice daily starting in the a.m., can adjust dose pending blood pressure and heart rate -AC: Patient started on Eliquis in the ED, will continue -Echocardiogram: Ordered -TSH: 1.91 # History of CLL - White blood cell count remain stably elevated - Outpatient follow-up #GERD -Continue PPI # Restless leg syndrome -continue patient's home medication regimen # History of IBS - Supportive care #DVT ppx: Patient started on full dose anticoagulation as above Luna Chen MD Charges/Coding Visit Charges Inpatient E&M: 36528 Init Hosp L2
--- NOTE | 2024-12-03 14:24 | ECHOD_ITS ---
Reason For Study Reason For Study: ATRIAL FIB/FLUTTER Procedure This was a 2D Doppler, Color Flow transthoracic echocardiogram. Exam performed portable in patient room. Left Ventricle Normal left ventricle. The estimated ejection fraction is 55???60 %. Right Ventricle Normal right ventricle. Normal systolic function. Atria Normal left atrium. Normal right atrium. Mitral Valve The mitral valve is structurally normal. No prolapse or stenosis seen. Trivial mitral valve insufficiency. Tricuspid Valve Normal tricuspid valve. Mild tricuspid valve insufficiency. Aortic Valve Trisinus/trileaflet aortic valve. Pulmonic Valve The pulmonic valve is not well visualized. Great Vessels The aortic root is not well visualized. Pericardium/Pleural No pericardial effusion. MMode/2D Measurements & Calculations LVIDd: 3.7 cm IVSd: 0.94 cm Ao root diam: 3.6 cm LVIDs: 2.5 cm LVPWd: 0.90 cm RVDd: 3.4 cm FS: 31.5 % LAV(MOD-bp): 41.2 ml LVAd ap4: 15.4 cm2 LVAd ap2: 16.9 cm2 LAV(MOD-bp) Indexed: 27.8 ml/m2 LVLd ap4: 5.6 cm LVLd ap2: 6.4 cm LAV(MOD-sp2): 37.6 ml EDV(MOD-sp4): 34.3 ml EDV(MOD-sp2): 37.4 ml LAV(MOD-sp4): 41.9 ml EDV(sp4-el): 36.3 ml EDV(sp2-el): 37.8 ml LVAs ap4: 8.8 cm2 LVAs ap2: 10.1 cm2 LVLs ap4: 4.9 cm LVLs ap2: 5.5 cm ESV(MOD-sp4): 14.4 ml ESV(MOD-sp2): 16.3 ml ESV(sp4-el): 13.4 ml ESV(sp2-el): 15.9 ml EF(MOD-sp4): 58.1 % EF(MOD-sp2): 56.4 % EF(sp4-el): 63.1 % SV(MOD-sp4): 20.0 ml SV(MOD-sp2): 21.1 ml SV(sp4-el): 22.9 ml SI(MOD-sp4): 13.5 ml/m2 SI(MOD-sp2): 14.2 ml/m2 LA A4 area: 15.3 cm2 LA dimension(2D): 3.7 cm RA A4 area: 15.2 cm2 Doppler Measurements & Calculations MV E max caryl: 108.2 cm/sec Ao V2 max: 96.5 cm/sec LV V1 max: 61.3 cm/sec Ao max P.7 mmHg LV V1 max P.5 mmHg Ao V2 mean: 69.7 cm/sec LV V1 mean P.85 mmHg Ao mean P.2 mmHg LV V1 mean: 44.1 cm/sec Ao V2 VTI: 18.2 cm LV V1 VTI: 12.3 cm AV (velocity ratio): 0.68 PA V2 max: 49.5 cm/sec TR max caryl: 237.0 cm/sec PA V2 mean: 36.2 cm/sec PI dec slope: 155.5 cm/sec2 TR max P.6 mmHg ECHO/Echo Complete Interpretation Summary The estimated ejection fraction is 55???60 %. Overall normal LV systolic function Mild TR No prior echocardiogram to compare. Ordering Physician: Luna Chen Referring Physician: Charlotte Sharif Performed By: Hayde Ly, MILES, RVT
--- NOTE | 2024-12-03 17:19 | NURSING ---
This RN called lab to inquire about troponin ordered for 1442, lab stated someone was out on floor, should be there shortly. 1615, no troponin drawn this RN re called lab to notify troponin still hadn't been drawn. mineral surveying technician Danelle stated she would call laborer tanbark. Troponin drawn at 1649.
[2024-12-03 17:25] LABS: Troponin T High Sens 4 HR 10 ng/L (<=14)
[2024-12-03] MEDS: Diltiazem 125 MG in Dextrose 5%-Water (100mL Bag) 100 ML 10 MG IV (23:04)
[2024-12-03] MEDS: MELATONIN 10 MG TABLET PO (23:11)
[2024-12-04] VITALS (22 sets, daily range): BP systolic 86–133; BP diastolic 49–93; PULSE 54–120; RESP 15–18; TEMP 36.2–36.4; O2SAT 84–99
[2024-12-04 05:54] LABS: Hematocrit 37.9 % (37-47); Hemoglobin 12.6 g/dL (12.0-15.0); Mean Corp Hgb Conc 33.2 g/dL (32-36); Mean Corpuscular Volume 94.5 fL (81-99); Mean Platelet Vol. 11.6 fl (6.2-12.0); Platelet Count 225 K/mm3 (150-450); RBC Distribution Width CV 13.9 % (11.6-14.6); RBC Distribution Width SD 48.1 fl (35.1-43.9); Red Blood Count 4.01 M/mm3 (4.2-5.4); White Blood Count 14.8 K/mm3 (4.4-11.0)
[2024-12-04 06:32] LABS: Anion Gap 11 (5-15); BUN 26 mg/dL (4-19); BUN/Creat Ratio 29.7 RATIO (10-20); Calcium,Total 9.1 mg/dL (7.6-11.0); Carbon Dioxide 21.3 mmol/L (21.0-32.0); Chloride 108 mmol/L (98-108); Estimated Creatinine Clearance 34.98 ml/min (50-250); Glucose 103 mg/dL (70-99); Potassium 4.1 mmol/L (3.3-5.1)
[2024-12-04 06:59] LABS: Cholesterol 135 mg/dL (<=200); Low Density Lipoprotein Calc. 53 mg/dL; Triglycerides 60 mg/dL; Very Low Density Lipoprotein 12 mg/dL (5-40); cholesterol:hdl ratio screen 1.93
[2024-12-04] MEDS: Cholecalciferol (VIT D3) 25 MCG TABLET (1,000 UNITS) 50 MCG PO (09:20)
--- NOTE | 2024-12-04 11:22 | CASEMGMT ---
EDDIE WALKER Assessment: Face to Face with pt for initial transition planning/care coordination assessment. EDDIE WALKER introduced self and role at [facility], pt voices understanding and consents to assessment. Pt is A&O x4 and answers all questions appropriately at this time. Pt sitting up in chair in no distress with dtr at bedside. Pt agreeable to assessment with dtr present. Care providers, pharmacy, and demographics verified/updated. Admitting Dx: afib with RVR Strata Score: 2 PCP:Kole Specialists:Kole, eyes; Mary Ellen, uro; Masci, onc; Cruz in the past, cardio Preferred Pharmacy: [facility] Insurance: [employer], [employer] Prescription Benefit: yes LNOK: Clair Drake, renéer; Jeni Koroma dtr Living Arrangements: Pt lives alone in a two story home with [facility] with 3 steps to enter with a rail. Pt reports she is I in ADL/IADLs and denies concerns at home. Pt does her own weeding and mowing still. Transportation: Pt drives self and denies concerns with transportation. DME:walker, cane, BP cuff- Pt does not use AD to ambulate. HHC/SNF: Denies hx of Pt states no concerns with going home at time of dc. 6 cl=24, no therapy ordered. Pt provided with eliquis savings information with explanation should she be dc'd on eliquis. Pt states no further concerns/needs. CM to follow. Advised pt to ask CM if any further questions/concerns/needs arise, voices understanding. Pt Goal: Home Plan: Home Roslyn MORGAN CM
--- NOTE | 2024-12-04 13:41 | PN.HOSP_ITS ---
Reason for Visit Chief Complaint: New onset afib/flutter Subjective Subjective Patient states she is feeling much better overall. Heart rates are still in the upper 90s to low 100s. Objective Data Objective Data Vital Signs: Vital Signs Temp Pulse Resp BP Pulse Ox O2 Del Method 97.5 F L 112 H 18 117/75 96 Room Air 12/04/24 12:00 12/04/24 12:00 12/04/24 12:00 12/04/24 12:00 12/04/24 12:00 12/04/24 12:00 Oxygen Delivery Method Room Air Weight: 49.9 kg Body Mass Index (BMI) 23.0 Intake & Output: Intake and Output for Last 24 Hours 12/02/24 12/03/24 12/04/24 23:59 23:59 23:59 Intake Total 1485.00 / 1494.33 295.92 / 295.92 Balance 1485.00 / 1494.33 295.92 / 295.92 Lab / Micro Data 12/04/24 05:06 12/04/24 05:06 Labs: Laboratory Results - last 24 hr 12/03/24 12:53: Troponin T Hi Sens 2 Hr 9 12/03/24 16:49: Troponin T Hi Sens 4Hr 10 12/04/24 05:06: WBC 14.8 H, RBC 4.01 L, Hgb 12.6, Hct 37.9, MCV 94.5, MCH 31.4, MCHC 33.2, RDW Std Deviation 48.1 H, RDW Coeff of Lory 13.9, Plt Count 225, MPV 11.6, Sodium 140, Potassium 4.1, Chloride 108, Carbon Dioxide 21.3, Anion Gap 11, BUN 26 H, Creatinine 0.86, Estim Creat Clear Calc 34.98 L, Est GFR (MDRD) Non-Af 66, BUN/Creatinine Ratio 29.7 H, Glucose 103 H, Calcium 9.1, Triglycerides 60, Cholesterol 135, LDL Cholesterol, Calc 53, VLDL Cholesterol 12, HDL Cholesterol 70, Cholesterol/HDL Ratio 1.93 Radiography Diagnostic Testing: Radiology Impression Echocardiogram 12/03/24 14:24 Interpretation Summary The estimated ejection fraction is 55???60 %. Overall normal LV systolic function Mild TR No prior echocardiogram to compare. Ordering Physician: Luna Chen Referring Physician: Charlotte Sharif Performed By: Hayde Ly, MILES, RVT Rhythm Strip Rhythm Strip: Atrial flutter Rate: 146 Ectopy: None Physical Exam Const alert, oriented x3, no apparent distress, average body habitus, healthy appearing and well nourished Constitutional Narrative: Very pleasant, elderly, white female, sitting up in a chair at the bedside watching television, appears comfortable, nontoxic HEENT head/scalp atraumatic and moist oral mucous membranes HEENT Narrative: Mallampati 2, no thrush Head and Scalp: normocephalic Eyes conjunctivae normal Eyes Narrative: No scleral icterus Resp normal respiratory effort, no retractions, no use of accessory muscles and clear to auscultation bilaterally Auscultation: Negative for rales, rhonchi or wheezes Cardio S1 normal heart sound, S2 normal heart sound, no murmurs, no rub, no gallops and no clicks; Negative for regular rate or regular rhythm Cardio Narrative: Irregularly irregular rhythm with mildly tachycardic rate GI normal to inspection, nondistended, normoactive bowel sounds, soft to palpation and non-tender Extremity no clubbing, cyanosis or edema Extremity Narrative: 2+ pedal and radial pulses with irregularly irregular rhythm noted Neuro moves all extremities and no focal motor deficits Speech: speech normal Psych affect normal Psych Narrative: Very pleasant, interacts appropriately Assessment & Plan Assessment/Plan (1) Leukocytosis: (2) Atrial fibrillation with RVR: PLAN: Plan New onset A-fib with RVR - Will discontinue Cardizem drip--> excellent heart rate control but still in A- fib - Increase metoprolol to 75 mg p.o. twice daily - Had increased metoprolol to 50 mg but heart rates were still in the 100-110 range so we will increase further to 75 mg as noted above - Continue Eliquis - Echocardiogram is unremarkable showing an EF of 55 to 60% with mild TR and no other valvular abnormalities identified, right and left atrial are unremarkable so patient may be amenable to outpatient cardioversion - TSH is within normal limits - Hopefully rates will be better controlled with uptitration of metoprolol and will be able to discharge home tomorrow with outpatient follow-up in cardiology Leukocytosis - Likely related to CLL History of CLL - White count stably elevated - Continue outpatient follow-up GERD -continue home PPI Restless leg syndrome - Continue home Mirapex Hyperlipidemia - Continue home statin IBS - Continue colestipol as needed DVT prophylaxis - Continue full dose Eliquis CODE STATUS - Full code Charges/Coding Visit Charges Inpatient E&M: 67699 Subs Hosp L2
--- NOTE | 2024-12-04 14:51 | CHAPLAIN ---
Type of Pastoral Visit _x__ Initial Visit ___ Follow-up Visit ___ On-call Visit ___ General Patient Visit ___ Spiritual Assessment ___ Family Conference ___ Bereavement ___ Rapid Response ___ Code Blue ___ Other (describe below) Pastoral Care Referral From _x__ Patient ___ Family ___ Nurse ___ Physician ___ Pastry Cook Helper ___ Car Installations Supervisor ___ Other (describe below) Sacrament/Intervention _x__ Active listening ___ Anointing ___ Moravian ___ Bereavement ___ Communion _x__ Shea exploration ___ ___ Life review _x__ Prayer ___ Reconciliation ___ Sacrament of Sick ___ Supportive presence ___ Wedding ___ Other (describe below) Pastoral Comments patient is welcoming and interactive; pt is waiting on answers from the DR about going home; pt is happy to talk about her protestant and friends there; pt welcomes a prayer and the presence in waiting
[2024-12-04] MEDS: Multivitamin (Healthy Eyes) Capsule 1 CAP PO (21:49)
[2024-12-05] MEDS: APIXABAN 5 MG TABLET PO (01:44)
[2024-12-05 03:50] VITALS: BP 117/88; PULSE 98; RESP 16; TEMP 36.6; O2SAT 96
[2024-12-05 05:19] LABS: Hematocrit 38.9 % (37-47); Hemoglobin 12.8 g/dL (12.0-15.0); Immature Granulocytes Count 0.030 X10^3/uL (0.0-0.0); Mean Corp Hgb Conc 32.9 g/dL (32-36); Mean Corpuscular Volume 94.6 fL (81-99); Mean Platelet Vol. 11.3 fl (6.2-12.0); NRBC Flagged by Analyzer 0.5 % (0-5); POSITIVE DIFFERENTIAL YES; Platelet Count 211 K/mm3 (150-450); RBC Distribution Width CV 13.7 % (11.6-14.6); RBC Distribution Width SD 48.0 fl (35.1-43.9); Red Blood Count 4.11 M/mm3 (4.2-5.4); White Blood Count 15.7 K/mm3 (4.4-11.0)
[2024-12-05 05:28] LABS: Differential Indicated SCAN CRITERIA MET
[2024-12-05 05:42] LABS: Magnesium 2.0 mg/dL (1.5-2.2)
[2024-12-05 05:45] LABS: AST(SGOT) 26 U/L (<=31); Alanine Aminotransfer ALT/SGPT 14 U/L (<=34); Albumin, Serum 3.9 g/dL (3.4-4.8); Alkaline Phosphatase 55 U/L (35-104); Anion Gap 10 (5-15); BUN 25 mg/dL (4-19); BUN/Creat Ratio 29.9 RATIO (10-20); Calcium,Total 9.0 mg/dL (7.6-11.0); Carbon Dioxide 20.4 mmol/L (21.0-32.0); Chloride 107 mmol/L (98-108); Estimated Creatinine Clearance 35.81 ml/min (50-250); Globulin 2.3 g/dL (2.2-4.2); Glucose 93 mg/dL (70-99); Potassium 4.4 mmol/L (3.3-5.1)
[2024-12-05 06:20] LABS: Differential Comment SCANNED; Reactive Lymphocyte RARE
[2024-12-05 07:21] VITALS: O2SAT 93
--- NOTE | 2024-12-05 09:21 | PCM.DC.SUM ---
Providers Date of Admission: 12/03/24 Date of Discharge: 12/05/24 Primary Care Physician: Dr. Charlotte Sharif MD Reason For Visit: A-FIB WITH RVR Diagnosis Discharge Diagnosis (1) Leukocytosis: Status: Acute Code(s): D72.829 - Elevated white blood cell count, unspecified (2) Atrial fibrillation with RVR: Status: Acute Code(s): I48.91 - Unspecified atrial fibrillation Medications at Discharge Home Medications omeprazole 20 mg capsule,delayed release 20 mg PO DAILY 11/04/13 coenzyme Q10 100 mg capsule (Co Q-10) 200 mg PO DAILY supplemen 07/10/18 loperamide 2 mg tablet (Anti-Diarrheal (loperamide)) 2 mg PO Q1-4H PRN Diarrhea 07/10/18 simvastatin 20 mg tablet 40 mg PO QHS 07/10/18 therapeutic multivitamin (Thera tablet) 1 ea PO DAILY 07/22/18 ascorbic acid 7.5 mg-vit E 7.5 unit-biotin 1,250 mcg chewable tablet (Hair,Skin,Nails with Biotin) 2 tab PO DAILY 02/22/21 cholecalciferol (vitamin D3) 50 mcg (2,000 unit) tablet (Vitamin D3) 50 mcg PO DAILY 02/22/21 doxylamine succinate 25 mg tablet (Unisom (doxylamine)) 25 mg PO QHS PRN Sleep 02/22/21 oxybutynin chloride 10 mg tablet,extended release 24 hr (Ditropan XL) 10 mg PO DAILY 02/22/21 turmeric 100 mg-jayleen 150 mg-olive 50 mg-oreg 150 mg-capryl capsule 2 cap PO DAILY 02/22/21 vit C 250 mg-vit E 90 mg-zinc 40 mg-copper 1 [id number] capsule (PreserVision AREDS-2) 1 tab PO BID 02/22/21 vitamin B12 1,000 mcg-folic acid 400 mcg sublingual lozenge 1 lonnie sublingual DAILY 02/22/21 pramipexole 0.125 mg tablet 0.75 mg PO QHS restless legs 08/30/21 colestipol 1 gram tablet (Colestid) 1 g PO BID PRN diarrhea #180 tabs 01/22/23 meclizine 25 mg tablet 25 mg PO Q8H PRN PRN Dizziness #30 tabs 06/23/23 prevagen 10 mg PO DAILY memory 12/03/24 apixaban 5 mg tablet (Eliquis) 2.5 mg (1/2 x 5 mg) PO BID 90 days #90 tabs 12/05/24 metoprolol tartrate 75 mg tablet 75 mg PO BID 30 days #60 tabs 12/05/24 Hospital Course Operations None Procedures EKG, Transthoracic echo and - (Chest x-ray) Summary of Care Provided Minutes Spent on Discharge: 35 Hospital Course: Patient is an 84-year-old female who presented to [facility] ED on 12/03/2024 with new onset A-fib with RVR. Hospital course as noted below. Patient discharged home in stable condition on 12/05. 1. New onset A-fib with RVR ? Presented with palpitations and shortness of breath with exertion. Found to have new onset A-fib with RVR with heart rate in the 160s on admit. Initiated on Cardizem drip with significant rate improvement but remained in A-fib. Transitioned to p.o. Lopressor initially at 25 mg twice daily, but rate worsened to the 110s to 120s. Dose increased up to 75 mg twice daily with rate improvement to the 80s to 90s at rest. Echo showed EF 55%, mild TR, no atrial dilation so may be amenable to outpatient cardioversion. TSH within normal limits. Discussed with patient and she was agreeable to initiation of anticoagulation. Discharged on Lopressor 75 mg twice daily and Eliquis 2.5 mg twice daily. Recommend close outpatient follow-up with cardiology after discharge. 2. History of CLL with chronic leukocytosis ? WBC count stable between 15 and 20,000 during hospitalization, which is at her baseline. No signs of infection during hospitalization. Continue outpatient follow-up. Chronic medical conditions: ? GERD: Continue home PPI. ? Restless leg syndrome: Continue home pramipexole. ? Hyperlipidemia: Continue home statin. ? IBS: Continue home colestipol as needed. Total clinical time spent by myself addressing the patient's medical issues, reviewing all the data, and collaborating with patient's care team: 35 minutes. Physical Exam Const alert, oriented x3, no apparent distress and average body habitus Constitutional Narrative: Pleasant elderly female, appears younger than stated age, sitting back comfortably in bed, conversing normally, in no acute distress. General Appearance: cooperative and comfortable HEENT normocephalic, head/scalp atraumatic, hearing grossly normal bilaterally, nasal mucous membranes and turbinates normal and moist oral mucous membranes Eyes PERRL, EOMs intact bilaterally and conjunctivae normal Neck full ROM Chest inspection of chest normal Resp normal respiratory effort, normal air movement, no use of accessory muscles and clear to auscultation bilaterally Cardio no murmurs and peripheral pulses 2+ throughout Cardio Narrative: A-fib, rate controlled. GI normal to inspection, nondistended, normoactive bowel sounds, soft to palpation, non-tender and non-distended Back/Spine normal ROM Extremity normal to inspection, full ROM and no pedal edema Skin no rashes or lesions noted Psych mental status grossly normal Weight / BMI Weight Weight: 49.9 kg Body Mass Index (BMI) 23.0 ABG / Lab / Microbiology Data 12/05/24 05:04 12/05/24 05:04 Laboratory: Laboratory Results - last 24 hr 12/05/24 05:04: WBC 15.7 H, RBC 4.11 L, Hgb 12.8, Hct 38.9, MCV 94.6, MCH 31.1, MCHC 32.9, RDW Std Deviation 48.0 H, RDW Coeff of Lory 13.7, Plt Count 211, MPV 11.3, Immature Gran % (Auto) 0.200, Neut % (Auto) 29.4 L, Lymph % (Auto) 66.5 H, [place] % (Auto) 2.3, Eos % (Auto) 1.4, Baso % (Auto) 0.2, Absolute Neuts (auto) 4.6, Absolute Lymphs (auto) 10.44 H, Nucleated RBC % 0.5, Differential Comment SCANNED, Diff Path Review May foll, Reactive Lymphocytes RARE, Sodium 138, Potassium 4.4, Chloride 107, Carbon Dioxide 20.4 L, Anion Gap 10, BUN 25 H, Creatinine 0.84, Estim Creat Clear Calc 35.81 L, Est GFR (MDRD) Non-Af 68, BUN/Creatinine Ratio 29.9 H, Glucose 93, Calcium 9.0, Phosphorus 3.9, Magnesium 2.0, Total Bilirubin 0.71, AST 26, ALT 14, Alkaline Phosphatase 55, Total Protein 6.2, Albumin 3.9, Globulin 2.3, Albumin/Globulin Ratio 1.7 D/C Instructions DC O2, CPAP, BIPAP Needs Home O2 Discharge instructions: No Meaningful Use Info Meaningful Use Meaningful Use Diagnoses (Choose all that apply): None applicable Discharge Plan Admission Admit Date/Time: 12/03/24 13:47 Primary Reason for Your Visit: palpitations Attending Provider: Gal Locke Primary Care Provider: Charlotte Sharif Consulting Providers: Luna Chen; Ana Maria Chan Instructions Additional Instructions / Restrictions: Please start taking the following medications as below: ? Metoprolol 75 mg twice daily (for heart rate control) ? Eliquis 2.5 mg twice daily (blood thinner for risk of stroke with A-fib) Please call the cardiology office to schedule a follow-up appointment in the next 1 to 2 weeks. Discharge Orders/Prescriptions Prescriptions: New Eliquis 5 mg Tablet 2.5 mg PO BID 90 Days Qty: 90 0RF metoprolol tartrate 75 mg tablet 75 mg PO BID 30 Days Qty: 60 2RF Continued coenzyme Q10 [Co Q-10] 100 mg capsule 200 mg PO DAILY loperamide [Anti-Diarrheal (loperamide)] 2 mg tablet 2 mg PO Q1-4H PRN (Reason: Diarrhea) omeprazole 20 MG capsule 20 mg PO DAILY Patient Comments: acid reflux simvastatin 20 mg tablet 40 mg PO QHS Patient Comments: cholesterol Thera 1 EACH tablet 1 ea PO DAILY oxybutynin chloride [Ditropan XL] 10 mg Tablet Extended Release 24hr 10 mg PO DAILY Unisom (doxylamine) 25 mg Tablet 25 mg PO QHS PRN (Reason: Sleep) cholecalciferol (vitamin D3) [Vitamin D3] 50 mcg (2,000 unit) Tablet 50 mcg PO DAILY PreserVision AREDS-2 250-90-40-1 mg Capsule 1 tab PO BID Hair, Skin, Nails with Biotin 7.5-7.5-1,250 mg-unit-mcg Tablet,Chewable 2 tab PO DAILY vitamin F65-bkwwn acid 1,000-400 mcg Lozenge 1 lonnie SUBLINGUAL DAILY jofroitr-pnrw-vyuyh-oreg-capry 100 mg-150 mg- 50 mg-150 mg Capsule 2 cap PO DAILY pramipexole 0.125 mg tablet 0.75 mg PO QHS Patient Comments: TAKE 1 TABLET BY MOUTH ONCE DAILY AT BEDTIME. MAY INCREASE BY 1 TABLET EVERY 3 NIGHTS UP TO A MAXIMUM OF 4 TABLETS AT BEDTIME meclizine 25 mg Tablet 25 mg PO Q8H PRN PRN (Reason: Dizziness) Qty: 30 0RF prevagen capsule 10 mg PO DAILY colestipol [Colestid] 1 gram tablet 1 g PO BID PRN (Reason: diarrhea) Qty: 180 3RF Referrals / Follow Up: Bryson Arroyo MD [Med Staff - Active Staff] - Charlotte Sharif MD [Primary Care Provider] - Disposition Disposition (needs filled in before D/C Order can be placed): Home, Self Care Charges/Coding Visit Charges Inpatient E&M: 19936 Disch Hosp >30min
[2024-12-05 09:29] VITALS: BP 123/98; PULSE 123
[2024-12-05] MEDS: Cholecalciferol (VIT D3) 25 MCG TABLET (1,000 UNITS) 50 MCG PO (09:30)
[2024-12-05] MEDS: Multivitamin (Healthy Eyes) Capsule 1 CAP PO (09:31)
[2024-12-05 09:34] VITALS: BP 123/98; PULSE 123; RESP 18; TEMP 36.5; O2SAT 98
[2024-12-05 09:35] VITALS: PULSE 123
[2024-12-05 16:21] VITALS: BP 106/87; PULSE 132; RESP 18; TEMP 36.3; O2SAT 98
== END 2024-12-05 16:40 | disposition home or self-care (01) | DRG 309 ==
LOC: ED 13:50 → PCU 14:00
PROVIDERS: Internal Medicine; Admitting Provider Internal Medicine; Emergency Provider Emergency Medicine; PCP Family Medicine; Visit Provider Hospitalist
DX: I48.91 Unspecified atrial fibrillation (principal); C91.10 Chronic lymphocytic leukemia of B-cell type not having achieved remission; G25.81 Restless legs syndrome; K21.9 Gastro-esophageal reflux disease without esophagitis; E78.5 Hyperlipidemia, unspecified; I07.1 Rheumatic tricuspid insufficiency; I44.30 Unspecified atrioventricular block; I48.92 Unspecified atrial flutter; K58.9 Irritable bowel syndrome, unspecified; Z87.891 Personal history of nicotine dependence; Z79.01 Long term (current) use of anticoagulants; Z90.79 Acquired absence of other genital organ(s); Z90.710 Acquired absence of both cervix and uterus
CPT/HCPCS: 36415; 71045; 80048; 80053; 80061; 83735; 84100; 84443; 84484; 85025; 85027; 85379; 93005; 93306; 94762; 99285; A4216

== ENCOUNTER → 2024-12-03 | Outpatient (CLI) | payer MEDICARE, OTHER, SELFPAY ==
[2024-12-03 13:04] LABS: Cholesterol 180 mg/dL (<=200); Low Density Lipoprotein Calc. 73 mg/dL; Triglycerides 94 mg/dL; Very Low Density Lipoprotein 19 mg/dL (5-40); cholesterol:hdl ratio screen 2.03
== END | disposition home or self-care (01) ==
LOC: LABSPEC 10:11 → BFHLAB 14:03
PROVIDERS: PCP Family Medicine; Visit Provider Family Medicine
DX: E78.5 Hyperlipidemia, unspecified (principal)
CPT/HCPCS: 36415; 80061

== ENCOUNTER → 2025-01-29 | Outpatient (CLI) | payer MEDICARE, OTHER, SELFPAY | END | disposition home or self-care (01) | LOC: CVS 06:34 | PROVIDERS: PCP Family Medicine; Referring Provider Internal Medicine Cardiovascular Disease; Visit Provider Internal Medicine Cardiovascular Disease | DX: R06.09 Other forms of dyspnea (principal); I48.91 Unspecified atrial fibrillation; I10 Essential (primary) hypertension; E78.5 Hyperlipidemia, unspecified | CPT/HCPCS: 78452; 93017; A9500; A4216; J2785 ==

== ENCOUNTER → 2025-02-01 | Outpatient (CLI) | payer MEDICARE, OTHER, SELFPAY | END | disposition home or self-care (01) | LOC: OPBI 10:28 | PROVIDERS: PCP Family Medicine; Referring Provider Family Medicine; Visit Provider Family Medicine | DX: Z12.31 Encounter for screening mammogram for malignant neoplasm of breast (principal) | CPT/HCPCS: 77063; 77067 ==

== ENCOUNTER → 2025-02-11 | Outpatient (CLI) | payer MEDICARE, OTHER, SELFPAY ==
[2025-02-11 14:38] LABS: Hematocrit 41.4 % (37-47); Hemoglobin 13.6 g/dL (12.0-15.0); Immature Granulocytes Count 0.030 X10^3/uL (0.0-0.0); Mean Corp Hgb Conc 32.9 g/dL (32-36); Mean Corpuscular Volume 93.7 fL (81-99); Mean Platelet Vol. 10.9 fl (6.2-12.0); NRBC Flagged by Analyzer 0 % (0-5); POSITIVE DIFFERENTIAL YES; Platelet Count 263 K/mm3 (150-450); RBC Distribution Width CV 13.9 % (11.6-14.6); RBC Distribution Width SD 48.1 fl (35.1-43.9); Red Blood Count 4.42 M/mm3 (4.2-5.4); White Blood Count 18.5 K/mm3 (4.4-11.0)
[2025-02-11 14:40] LABS: Differential Indicated SCAN CRITERIA MET
[2025-02-11 15:20] LABS: Anion Gap 10 (5-15); BUN 22 mg/dL (4-19); BUN/Creat Ratio 24.7 RATIO (10-20); Calcium,Total 9.1 mg/dL (7.6-11.0); Carbon Dioxide 24.8 mmol/L (21.0-32.0); Chloride 106 mmol/L (98-108); Glucose 113 mg/dL (70-99); Potassium 4.1 mmol/L (3.3-5.1); Pro- Brain NATRIURETIC PEPTIDE 1796 pg/mL (<=1800)
== END | disposition home or self-care (01) ==
LOC: LAB 14:10
PROVIDERS: PCP Family Medicine; Referring Provider Nurse Practitioner Gerontology; Visit Provider Nurse Practitioner Gerontology
DX: R06.02 Shortness of breath (principal)
CPT/HCPCS: 36415; 80048; 83880; 85025

== ENCOUNTER → 2025-02-22 | Outpatient (CLI) | payer MEDICARE, OTHER, SELFPAY | END | disposition home or self-care (01) | LOC: PSN 07:39 | PROVIDERS: PCP Family Medicine; Referring Provider Nurse Practitioner Gerontology; Visit Provider Nurse Practitioner Gerontology | DX: I48.91 Unspecified atrial fibrillation (principal) | CPT/HCPCS: 93225; 93226 ==